=== PATIENT | female | born 1930 | race Caucasian/White ===

== ENCOUNTER 2017-05-30 13:27 | Inpatient (IN) | payer MEDICARE, OTHER ==
[2017-05-30] MEDS ORDERED: Sodium Chloride 0.9% 10 ML Syringe FLUSH PRN (14:07)
[2017-05-30] MEDS ORDERED: Nitroglycerin 0.4 MG Tab.SL SL PRN (14:09)
[2017-05-30] MEDS ORDERED: Take Home: Albuterol 6.7 GM Inhaler, 1 Inhaler Pack INH PRN (14:12)
[2017-05-30] MEDS ORDERED: Dextran 70/Hypromellose/PF Ophth Soln 0.9 ML UD EYEBOTH PRN (14:12)
[2017-05-30] MEDS ORDERED: cloNIDine 0.1 MG Tab PO PRN (14:12)
[2017-05-30] MEDS ORDERED: Acetaminophen 325 MG Tab PO PRN (14:12)
[2017-05-30] MEDS ORDERED: Albuterol 0.083% 2.5 MG/3 ML Neb Soln NEB PRN (14:35)
[2017-05-30] MEDS: Furosemide 20 MG/2 ML VIAL IV SCH (15:22)
[2017-05-30] MEDS: Enoxaparin 60 MG/0.6 ML Syringe SUBCUT SCH ×2 (15:22→20:07)
[2017-05-30] MEDS: Vitamin B Complex Tab.ER PO SCH (15:22)
[2017-05-30] MEDS: Mirtazapine 15 MG Tab PO SCH (20:08)
[2017-05-30] MEDS: Gabapentin 300 MG Cap PO SCH (20:08)
[2017-05-30] MEDS: Warfarin 2.5 MG Tab PO SCH (20:08)
[2017-05-30] MEDS: BRIMONIDINE EYEBOTH SCH (20:10)
[2017-05-30] MEDS: BIMATOPROST EYEBOTH SCH (20:10)
[2017-05-30] MEDS: TIMOLOL EYEBOTH SCH (20:10)
[2017-05-30] MEDS: SALMETEROL IH SCH (20:11)
[2017-05-30] MEDS: FLUTICASONE IH SCH (20:11)
[2017-05-30] MEDS: DORZOLAMIDE EYERT SCH (20:11)
--- NOTE | 2017-05-31 00:17 | HP ---
CHIEF COMPLAINT: Chest pain. HISTORY OF PRESENT ILLNESS: This is an 86-year-old female who came into her regularly scheduled clinic visit today with chest pain, she describes as a tightness, started 8:30 this morning, so about 3 hours prior to presentation. She rated it at an 8 or 9, but after receiving 4 baby aspirin, it decreased to about a 4 and was improving, so no nitroglycerin was given. She does have a known history of coronary artery disease back in 2003. She had a 70% lesion in the diagonal, but she has never had stents or any interventions. She has a longstanding history of essential hypertension, under poor control, atrial fibrillation on Coumadin, likely peripheral vascular disease, and renal artery stenosis with a history of splenic artery aneurysm and pulmonary hypertension. The patient admits she is short of breath also. Nothing seems to make the pain better or worse. She did not try any medications at home even though she has nitroglycerin. She is not coughing, no fever, no chills. Prior to this morning, she has not had chest discomfort, but has been having changes in her blood pressure medications and being seen almost on a weekly basis. In fact, she was taken off hydrochlorothiazide due to worsening kidney function, but last week, her kidneys had improved. Unfortunately, she has gained 5 pounds in 1 week, but denies that her legs have increased significantly in swelling. She is on Lasix 40 mg daily. She is on Toprol 25 mg daily and higher doses have caused bradycardia. She has been on Catapres pretty consistently 0.1 mg daily over the last month with higher blood pressures. She is also on 60 mg of lisinopril daily. ALLERGIES: Include penicillin, hives; latex, hives; cephalosporins, rash; Lotrel, unknown, that would be the combination of amlodipine, benazepril, actually amlodipine had recently been discontinued due to leg swelling; rofecoxib, tape, Vioxx, Zoloft causes nausea, vomiting, and diarrhea. MEDICATIONS: Her current medication list some of which are listed already above, but includes nitroglycerin 0.3 as needed for chest pain, Incruse daily, vitamin B complex daily, folic acid daily, Neurontin 300 in the morning, 600 at bedtime, Tylenol as needed, Toprol 25 mg daily, clonidine 0.1 daily for blood pressures over 150, lisinopril 60 mg daily, ophthalmic drops Lumigan, Advair 1 puff twice a day, Lasix 40 mg daily, Imdur 60 mg daily, Remeron 15 mg at bedtime, Combigan drops, Trusopt, Voltaren gel, multivitamin, eye vitamins, warfarin alternating doses of 3.75 and 2.5 mg, but previously had been on 2.5 mg daily. PAST MEDICAL HISTORY: 1. Tricuspid regurgitation, moderate mitral regurgitation. 2. Previous small bowel obstruction with adhesions, had surgery for that. 3. Coronary artery disease dating back to [address] elevation [place] and then angiogram in 2003 showed 70% narrowing in the diagonal branch, but without other significant stenosis. 4. History of stroke with homonymous hemianopia, occipital lobe infarction. 5. Chronic atrial fibrillation on Coumadin. 6. Pulmonary hypertension due to left heart disease. 7. Diastolic heart failure chronic with ejection fraction in 09/2014 at 65%. 8. Peripheral neuropathy. 9. Previous right hip fracture with ORIF in 2011. 10.Reactive airway disease but is not asthma. 11.Depression, long-standing, follows with Psychiatry. 12.Essential hypertension, poorly controlled. 13.Right renal artery stenosis. 14.Splenic artery aneurysm. 15.Reported history of dementia on a mini-mental status exam but that was after a cardiac arrest for bradycardia improved to 27/30 in 2017. SOCIAL HISTORY: The patient is living independently in an apartment. She has multiple children, but not all of them are involved in her care. She is a nonsmoker, nondrinker. FAMILY HISTORY: Both parents are . REVIEW OF SYSTEMS: General: Again, the weight change. She has felt fatigued. HEENT: No sore throat. Cardiac: She has had the chest discomfort, shortness of breath. She has not noted any palpitations. Respiratory: She is not coughing. Musculoskeletal: She has had some leg swelling over the past month, it has gotten a little worse since last week, but better than a month ago, otherwise musculoskeletal, no new aches or pains. Neurologic: No new weakness. No memory changes. Otherwise, all systems reviewed and found to be negative unless otherwise stated. PHYSICAL EXAMINATION: General: The patient was seen at [facility] on exam there. In general, she is in no acute distress. Vital Signs: Her temperature 97.3, weight 63.5 kg, pulse 79, blood pressure 185/71, respiratory rate 16, O2 93 on room air. Heart: Regular rate and rhythm with systolic murmur appreciated. Lung: Lung sounds are clear to auscultation bilaterally without crackles or wheezes. Abdomen: Nondistended, nontender. Extremities: Warm and dry. She has 1+ edema to both ankles and shins. No redness, no warmth, no drainage. She had a rash a few weeks ago, but it was from [facility]. She never ended up needing antibiotics. Neuro: Mental status, she is alert and orientated x3. Psych: She appears mildly depressed, but not suicidal. LAB WORK: Reviewed showed a troponin negative at 0.017. BNP 1450. INR was just 1.5. BMP, glucose 93, BUN 23, creatinine 1.12, sodium 139, potassium 4.1, chloride 105, bicarb 24, calcium 9.1. CBC, white count 6.2, hemoglobin 12.4, platelets are actually 181. B12 pending. On her EKG, she does have atrial flutter appreciated, 3:1 conduction rate is 78. She has LVH changes which likely contribute to some nonspecific inferior lateral ST changes when compared to her EKG from 12/2016. She was also in atrial flutter at that time, LVH and nonspecific ST changes are the same. Chest x-ray done through the clinic showed some mild increased pulmonary vascular congestion, but no acute infiltrates. ASSESSMENT AND PLAN: 1. Acute on chronic diastolic heart failure exacerbation with known EF of 65% back in 2014. We will place the patient on IV Lasix 20 mg b.i.d., reassess lab work in the morning. 2. Essential hypertension, elevated blood pressures probably contributing to the diastolic heart failure. This should improve with the Lasix. At this point, I will also stop her Toprol and place her on low-dose Coreg 3.125 b.i.d. to help the blood pressure more and hopefully not affect the heart rates as much. We will continue her other home medications. 3. Mild renal insufficiency, really this has improved. We will continue close monitoring of kidney function with IV Lasix. 4. Pulmonary hypertension. We will order oxygen to be used at night. 5. Coronary artery disease. We will rule her out with serial troponins. 6. Valvular heart disease. We will manage medically with optimal control of blood pressure. 7. Probable renal artery stenosis could be contributing to blood pressure, but given her kidney function and other comorbidities, we will treat medically. Eventually, she will be seen by Interventional Radiology for another angiogram. 8. History of stroke with atrial fibrillation. We are going to place her on Lovenox 60 twice daily, repeat an INR in the morning. Continue 3.75 daily for now. 9. History of reactive airway disease, not asthma. We will continue her home inhalers. This is stable. No exacerbation contributing to her breathing. I think this is all cardiac. 10.History of dementia. The patient has been managing okay. 11.Depression. Stress is contributing somewhat to her blood pressure. We will have the clinical social worker see her for supportive cares. PLAN: The patient is admitted for acute cares, for IV diuresis, telemetry, diuretics, repeat troponins, blood pressure control. Anticipate she will at least be here 2 midnights and discharge home when medically stable. Code level 1. MKA: 05/30/2017 17:42:43 MODL: 05/31/2017 00:11:06 /[id number]
[2017-05-31] MEDS: TIMOLOL EYEBOTH SCH ×2 (05:04→14:00)
[2017-05-31] MEDS: BRIMONIDINE EYEBOTH SCH ×2 (05:04→14:00)
[2017-05-31] MEDS: Carvedilol 3.125 MG Tab PO SCH ×3 (06:26→18:09)
[2017-05-31] MEDS ORDERED: Metoprolol Tartrate 25 MG Tab PO SCH (08:00)
[2017-05-31] MEDS: Vitamin B Complex Tab.ER PO SCH (08:28)
[2017-05-31] MEDS: Folic Acid 1 MG Tab PO SCH (08:29)
[2017-05-31] MEDS: Isosorbide Mononitrate 30 MG Tab.ER PO SCH (08:30)
[2017-05-31] MEDS: Gabapentin 300 MG Cap PO SCH ×2 (08:31→20:12)
[2017-05-31] MEDS: Enoxaparin 60 MG/0.6 ML Syringe SUBCUT SCH ×2 (08:31→20:12)
[2017-05-31] MEDS: Beta-Carotene (Vitamin A) w/Vitamin C & E plus Minerals Tab PO SCH (08:32)
[2017-05-31] MEDS: Lisinopril 20 MG Tab PO SCH (08:32)
[2017-05-31] MEDS: Furosemide 20 MG/2 ML VIAL IV SCH ×2 (08:43→16:28)
--- NOTE | 2017-05-31 09:52 | PN ---
Progress Note for CONNOR SPEARS Date: 05/31/2017 Room #: VM.203 SUBJECTIVE: This is hospital day #2 for an 86-year-old admitted with diastolic heart failure exacerbation and chest pain. She was ruled out for myocardial infarction with serial troponins, which were all negative. Her chest pain did resolve. It improved significantly after 4 aspirin in the clinic and she did not even take any nitro in the hospital. She states she is less short of breath when she has been up today going to the bathroom, but she has not really been out of her room walking. She has been urinating quite a bit with IV Lasix. Her leg swelling has improved. She was monitored with telemetry. She did have some bradycardia down to 31 including a couple 2.6 second blocks. She has been on Toprol 25 mg daily. This was switched to Coreg to start today 3.125 b.i.d. OBJECTIVE: Vital Signs: Her temperature is 98.4, her pulse is 72, blood pressure 161/74, respiratory rate 18, and O2 96% on room air. General: She is in no acute distress. Heart: Regular rate and rhythm with murmur noted. Lungs: Sounds are clear to auscultation, but decreased slightly in the bases. No crackles or wheezes appreciated. Abdomen: Soft, nontender. Extremities: Warm and dry, just trace edema at the ankles. Mental Status: She is alert and orientated x3. LABORATORY DATA: Lab work does show white count 5.5, hemoglobin 10.8, and platelets 169. INR low at 1.2. Sodium 145, potassium 3.8, chloride 109, bicarb 30, BUN 22, creatinine 1.1, calcium 8.5, and magnesium 1.9 yesterday. ASSESSMENT AND PLAN: 1. [id number] diastolic heart failure exacerbation with known EF of 65% back in 2014 and known valvular heart disease. We will continue the patient on IV Lasix 20 mg twice daily. Reassess labs in the morning. Creatinine has been actually improved today at 1.1. 2. Essential hypertension. Blood pressure is still elevated, but improved, should continue to improve with diuresis. She also will be on Coreg now. 3. Atrial flutter with bradycardia. The patient has had actually a bradycardic arrest in the past with increased doses of beta-blockers; so, we will do this cautiously and monitor her with telemetry. I had discussed the possibility of seeing Cardiology and the potential for pacemaker with the patient. She would like to avoid this. 4. Mild renal insufficiency with chronic kidney disease. This is improving. We will continue to monitor. 5. Renal artery stenosis. We will contact Interventional Radiology and let them know that her kidney function is improving. They are planning for her to have an angiogram in the future. 6. Pulmonary hypertension. She is on oxygen at night. 7. Coronary artery disease. She has no further chest pain. 8. History of stroke with atrial fibrillation. She is on Lovenox 60 mg twice daily. We will repeat her INR in the morning and continue the Coumadin 3.75 mg. She states she did not miss any doses. 9. History of reactive airway disease, that is not asthma. This is stable. 10.History of dementia. This is mild and she has been managing quite well. She lives independently. If she did need a pacemaker, she would be a candidate for it. 11.Depression, usually worsened by stress. I will have her visit with the social science teacher for supportive cares. PLAN: At this point, the patient will continue acute cares with IV Lasix, telemetry, repeat lab work tomorrow, continue Lovenox, CPT, code level 1. MKA: 05/31/2017 09:04:09 MODL: 05/31/2017 09:29:25 /[id number]
[2017-05-31] MEDS: SALMETEROL IH SCH ×2 (10:01→20:13)
[2017-05-31] MEDS: UMECLIDINIUM BROMIDE 62.5 MCG IH SCH (10:01)
[2017-05-31] MEDS: FLUTICASONE IH SCH ×2 (10:01→20:13)
[2017-05-31] MEDS: DORZOLAMIDE EYERT SCH ×3 (10:01→20:14)
[2017-05-31] MEDS: cloNIDine 0.1 MG Tab PO SCH (10:02)
[2017-05-31] MEDS: Warfarin 2.5 MG Tab PO SCH (20:12)
[2017-05-31] MEDS: Mirtazapine 15 MG Tab PO SCH (20:12)
[2017-05-31] MEDS: BIMATOPROST EYEBOTH SCH (20:13)
[2017-06-01] MEDS: TIMOLOL EYEBOTH SCH ×2 (02:15→16:35)
[2017-06-01] MEDS: BRIMONIDINE EYEBOTH SCH ×2 (02:15→16:35)
[2017-06-01] MEDS: Carvedilol 3.125 MG Tab PO SCH ×2 (09:33→17:17)
[2017-06-01] MEDS: Vitamin B Complex Tab.ER PO SCH (09:33)
[2017-06-01] MEDS: cloNIDine 0.1 MG Tab PO SCH (09:33)
[2017-06-01] MEDS: FLUTICASONE IH SCH ×2 (09:34→19:43)
[2017-06-01] MEDS: Folic Acid 1 MG Tab PO SCH (09:34)
[2017-06-01] MEDS: DORZOLAMIDE EYERT SCH ×3 (09:34→19:43)
[2017-06-01] MEDS: SALMETEROL IH SCH ×2 (09:34→19:43)
[2017-06-01] MEDS: Isosorbide Mononitrate 30 MG Tab.ER PO SCH (09:34)
[2017-06-01] MEDS: Gabapentin 300 MG Cap PO SCH ×2 (09:35→19:40)
[2017-06-01] MEDS: Furosemide 20 MG/2 ML VIAL IV SCH ×2 (09:35→16:54)
[2017-06-01] MEDS: Lisinopril 20 MG Tab PO SCH (09:35)
[2017-06-01] MEDS: Enoxaparin 60 MG/0.6 ML Syringe SUBCUT SCH ×2 (09:35→19:41)
[2017-06-01] MEDS: Beta-Carotene (Vitamin A) w/Vitamin C & E plus Minerals Tab PO SCH (09:37)
[2017-06-01] MEDS: UMECLIDINIUM BROMIDE 62.5 MCG IH SCH (09:37)
--- NOTE | 2017-06-01 16:50 | PN ---
Progress Note for CONNOR SPEARS Date: 06/01/2017 Room #: VM.203 SUBJECTIVE: This is hospital day #3 for an 86-year-old admitted with an acute on chronic diastolic heart failure exacerbation, chest pain and hypertension. The patient has diuresed well over 1.4 L. she has had good urine output. She has had no further chest pain. Her breathing is better. She has been up walking with therapies. Her leg swelling has improved. Her blood pressures have also improved. Unfortunately, her INR continues to be low only up to 1.3 today. Her family states she missed at least 3/5 doses of Coumadin. Her medications are set up for her by Home Health, but she said there had been a problem with her timer. It was also confirmed with pharmacy that she did not want to even berry picker a medication that was about 3 dollars a month and Eliquis would be 8 dollars. She does have some history of medication noncompliance in the past but had been doing better recently. Family is hopeful that we can simplify her regimen of medications. She denies any headache or vision changes. OBJECTIVE: Vital Signs: Her temperature is 97.7, her weight is 61.0 kg, blood pressure 129/68, respiratory rate 16, O2 95% on room air. General: She is in no acute distress. Heart : Regular rate and rhythm with murmur. Respiratory: Lungs sounds are clear to auscultation bilaterally without crackles or wheezes. Abdomen: Nondistended, nontender. Extremities: Just trace edema at the ankle. Overall in weight, she has lost about 5 pounds. Mental Status: She is alert and orientated x3. LABORATORY DATA: Lab work today does show white count 5.5, hemoglobin of 11, platelets 172. INR 1.3. Sodium 144, potassium 3.7, chloride 108, bicarb 29, BUN 26, creatinine 1.2, glucose 90, calcium 8.6. ASSESSMENT AND PLAN: 1. Acute on chronic diastolic heart failure exacerbation, improving with IV Lasix. EF is 65% back in 2015 but she has valvular heart disease. We will continue the IV Lasix. We will reassess labs in the morning. Likely, she will be able to be discharged home on increased doses of oral Lasix tomorrow, which would include 40 mg in the morning and 20 mg in the afternoon. Could consider adding aldactone if blood pressure continues to be elevated or she needs additional potassium supplements. 2. Essential hypertension, under improved control. We will continue her current medications. 3. Atrial flutter with bradycardia. This has improved since stopping the metoprolol. Coreg seems to be maintaining her blood pressure better as well. We will continue telemetry given her history of bradycardia and pauses. 4. Chronic kidney disease, stable. We will repeat renal function tomorrow. 5. Renal artery stenosis. We are still working on followup with Interventional Radiology. 6. Pulmonary hypertension. We will continue oxygen at night. 7. Coronary artery disease. She has had no further chest pain. 8. History of stroke with atrial fibrillation. She will continue with Lovenox bridging. We will repeat an INR tomorrow. 9. Reactive airway disease that is not asthma, stable. 10.History of dementia. B12 level through the clinic recently was normal. She will continue on her supplements. 11.Depression, chronic problem, worsened by stress, seems to be stable. PLAN: At this point, the patient will continue acute cares with IV Lasix. We will continue telemetry. We will continue Lovenox. We will repeat lab work tomorrow. MKA: 06/01/2017 16:09:07 MODL: 06/01/2017 16:22:53 /[id number]
[2017-06-01] MEDS ORDERED: Furosemide 20 MG Tab PO SCH (17:00)
[2017-06-01] MEDS: Mirtazapine 15 MG Tab PO SCH (19:40)
[2017-06-01] MEDS: Warfarin 2.5 MG Tab PO SCH (19:41)
[2017-06-01] MEDS: BIMATOPROST EYEBOTH SCH (19:41)
[2017-06-02] MEDS: TIMOLOL EYEBOTH SCH (03:21)
[2017-06-02] MEDS: BRIMONIDINE EYEBOTH SCH (03:21)
[2017-06-02] MEDS ORDERED: Furosemide 40 MG Tab PO SCH (08:00)
[2017-06-02] MEDS: Vitamin B Complex Tab.ER PO SCH (08:11)
[2017-06-02] MEDS: SALMETEROL IH SCH (08:13)
[2017-06-02] MEDS: FLUTICASONE IH SCH (08:13)
[2017-06-02] MEDS: Folic Acid 1 MG Tab PO SCH (08:13)
[2017-06-02] MEDS: Enoxaparin 60 MG/0.6 ML Syringe SUBCUT SCH (08:15)
[2017-06-02] MEDS: Gabapentin 300 MG Cap PO SCH (08:15)
[2017-06-02] MEDS: Beta-Carotene (Vitamin A) w/Vitamin C & E plus Minerals Tab PO SCH (08:18)
[2017-06-02] MEDS: cloNIDine 0.1 MG Tab PO SCH (08:23)
[2017-06-02] MEDS: Isosorbide Mononitrate 30 MG Tab.ER PO SCH (08:24)
[2017-06-02] MEDS: Lisinopril 20 MG Tab PO SCH (08:25)
[2017-06-02] MEDS: Carvedilol 3.125 MG Tab PO SCH (08:28)
[2017-06-02] MEDS: DORZOLAMIDE EYERT SCH (08:29)
[2017-06-02] MEDS: UMECLIDINIUM BROMIDE 62.5 MCG IH SCH (08:29)
[2017-06-02 09:48] VITALS: BP 174/52
--- NOTE | 2017-06-02 10:19 | DISCH ---
PRIMARY DISCHARGE DIAGNOSES: 1. Acute on chronic diastolic heart failure exacerbation with hypertensive urgency and chest pain, EF known to be 65% in 2015 with valvular heart disease. 2. Angina with known history of coronary artery disease, ruled out for myocardial infarction with serial troponins. 3. Essential hypertension. Blood pressure has improved significantly, but did go up again slightly just prior to discharge. The patient admits to being anxious about going home, but she is ready for discharge and wants to go home today. 4. Atrial flutter with bradycardia and up to 2.6 second pauses while on metoprolol. Seemed to do better on lower dose Coreg. Most heart rates were in the 80s with atrial flutter with some readings down into the high 40s. 5. Chronic kidney disease, stable with creatinine 1.2 on discharge. 6. Renal artery stenosis. Interventional Radiology is trying to contact her to schedule an angiogram. 7. Pulmonary hypertension, chronic and at least [id number]. She is supposed to use oxygen at night. 8. Coronary artery disease in the diagonal branch, 70% for at least the last 10 years. 9. History of stroke on Coumadin, with subtherapeutic INR due to missing at least 3 doses of Coumadin. INR improved to 1.6 on her discharge. She was bridged with Lovenox during her stay. 10.Reactive airway disease that is not asthma. 11.History of dementia. 12.Depression. REASON FOR ADMISSION: On the date of admission, this 86-year-old female was admitted after presenting to the clinic with chest pain over a 5-pound weight gain in the past week, leg swelling, and shortness of breath. The patient was admitted. She was placed on IV Lasix and diuresed. Her weight went down about 5 pounds after that and she was negative over 1 L of fluid. She had no further chest pain. Her breathing was better. Overall, she was feeling better and stable for discharge. The patient had been having increased fluid retention over about the last month, had been having multiple diuretic adjustments, and at one point was on hydrochlorothiazide and her creatinine had increased. Therefore, it was felt that inpatient diuresis would be most appropriate for her. She also has chronic anemia and hemoglobin was stable between 10.8 and 10.6 on discharge. She had no acute bleeding with her increased anticoagulation. She was up, she was walking in the manrique, working with therapy. PHYSICAL EXAMINATION: Vital Signs: Discharge vitals include a weight 62.6 kg; temperature 97.6; pulse 72; blood pressure 150/49, but then a repeat just after I rounded was 191/77. It will be repeated again before discharge. Respiratory rate 14, O2 99 on 2 L, but she will be off that during the day. Heart: Regular rate and rhythm with murmur. Lungs: Lung sounds are clear to auscultation bilaterally without crackles or wheezes. Abdomen: Positive bowel sounds. Soft and nontender. Extremities: Warm and dry. She has just trace edema at her ankles. Mental Status: She is alert, she is orientated x3. Psych: She is not overly depressed or anxious. The social sciences department chair is going to try to visit with her prior to discharge to answer any concerns and we will get Home Health set up again on discharge. DISCHARGE PLANS AND INSTRUCTIONS: She will see Dr. Piedra in the clinic on 06/13/2017 at 3:40 with lab work prior. CBC, BMP, and mag. She will be on increased Lasix 40 in the morning and 20 at 11:00 a.m. to go with her other 11:00 med, which is Imdur. She also was given 3.75 of warfarin each day she was here, but will go back on 2.5 daily until her repeat INR on Monday. Her metoprolol was also stopped and she will be on Coreg 3.125 twice daily. For her addendum to Home Health, the patient was seen [id number] on 06/02/2017. She requires Home Health with nursing for teaching and assessments given her heart failure and cognitive impairment due to multiple medication changes. The patient will be homebound as she is unable to drive due to her poor vision and shortness of breath with traveling longer distances. She relies on others to get brought to appointments. Greater than 30 minutes spent on this discharge process. MKA: 06/02/2017 08:49:06 MODL: 06/02/2017 09:55:50 /[id number]
[2017-06-02] MEDS ORDERED: Warfarin 2.5 MG Tab PO SCH (20:00)
== END 2017-06-02 09:55 | disposition home or self-care (01) | DRG 291 ==
LOC: VM.MS 13:30 → UNDOADMIN 13:30 → VM.MS 13:33
PROVIDERS: ADMIT Internal Medicine; ATTEND Internal Medicine
DX: I13.0 Hypertensive heart and chronic kidney disease with heart failure and stage 1 through stage 4 chronic kidney disease, or unspecified chronic kidney disease (principal); I50.33 Acute on chronic diastolic (congestive) heart failure; I48.92 Unspecified atrial flutter; I25.119 Atherosclerotic heart disease of native coronary artery with unspecified angina pectoris; I27.22 Pulmonary hypertension due to left heart disease; I08.1 Rheumatic disorders of both mitral and tricuspid valves; I70.1 Atherosclerosis of renal artery; I48.2 Chronic atrial fibrillation; I72.8 Aneurysm of other specified arteries; Z86.73 Personal history of transient ischemic attack (TIA), and cerebral infarction without residual deficits; F03.90 Unspecified dementia, unspecified severity, without behavioral disturbance, psychotic disturbance, mood disturbance, and anxiety; F32.9 Major depressive disorder, single episode, unspecified; R00.1 Bradycardia, unspecified; N18.9 Chronic kidney disease, unspecified; J45.909 Unspecified asthma, uncomplicated; G62.9 Polyneuropathy, unspecified; Z88.0 Allergy status to penicillin; Z88.8 Allergy status to other drugs, medicaments and biological substances; Z88.1 Allergy status to other antibiotic agents; Z91.040 Latex allergy status; Z79.01 Long term (current) use of anticoagulants; Z79.899 Other long term (current) drug therapy
CPT/HCPCS: 36415; 80048; 83735; 84484; 85025; 85610; 94760; 97161-GP; A9270-GY; J1650; J1940; J7050

== ENCOUNTER 2017-09-05 13:30 | Emergency (ER) | payer MEDICARE, OTHER ==
[2017-09-05 13:46] VITALS: BP 142/61
[2017-09-05] MEDS ORDERED: Sodium Chloride 0.9% 10 ML Syringe FLUSH PRN (14:01)
[2017-09-05] MEDS ORDERED: Ondansetron 4 MG/2 ML SDV IVPUSH ONE (14:05)
[2017-09-05] MEDS ORDERED: Lactated Ringers 1,000 ML IV SCH (14:15)
[2017-09-05 15:07] LABS: CHLORIDE,CL 108 mmol/L (98-107); SODIUM,NA 143 mmol/L (136-145)
[2017-09-05] MEDS ORDERED: Nitrofurantoin Monohydrate/Macrocrystalline 100 MG Cap PO ONE (15:55)
--- NOTE | 2017-09-05 16:24 | EDM.PDOC ---
ED HPI GENERAL MEDICAL PROBLEM - General Chief Complaint: General Stated Complaint: DIZZY/LIGHTHEADED/DIARRHEA Time Seen by Provider: 09/05/17 13:43 Source of Information: Reports: Patient History Limitations: Reports: No Limitations - History of Present Illness INITIAL COMMENTS - FREE TEXT/NARRATIVE: Pt. presents to ER with complaints of weakness, lightheadedness, and fatigue. Family states that she does not like to drink water and typically drinks pop. She has also has a couple episodes of loose stools. No fever or chills. No weakness. Denies any chest pain or shortness of breath. Pt. states that her appetite has been poor. Onset: Today Location: Reports: Generalized Severity: Mild - Related Data Allergies Allergy/AdvReac Type Severity Reaction Status Date / Time adhesive Allergy Cannot Verified 01/21/17 14:14 Remember benazepril HCl [From Lotrel] Allergy Cannot Verified 01/21/17 14:14 Remember Cephalosporins Allergy Rash Verified 01/21/17 14:14 latex Allergy Hives Verified 01/21/17 14:14 Penicillins Allergy Hives Verified 01/21/17 14:14 rofecoxib [From Vioxx] Allergy Cannot Verified 01/21/17 14:14 Remember sertraline HCl [From Zoloft] AdvReac Diarrhea Verified 01/21/17 14:14 Home Meds: Home Meds Diclofenac Sodium [Voltaren 1% Gel] 2 gm TOP QID PRN 03/08/13 [History] Furosemide [Lasix] 40 mg PO DAILY 03/08/13 [History] Gabapentin [Neurontin] 300 mg PO DAILY 03/08/13 [History] Isosorbide Mononitrate [Imdur] 60 mg PO DAILY 03/08/13 [History] Lisinopril [Prinivil] 60 mg PO DAILY 03/08/13 [History] Nitroglycerin [Nitrostat] 0.3 mg SL ASDIRECTED PRN 03/08/13 [History] Albuterol Sulfate [Albuterol Sulfate HFA] 1 - 2 puff INH Q4HR PRN 12/23/13 [ History] Brimonidine/Timolol [Combigan 0.2%/0.5% Ophth Soln] 1 drop EYEBOTH Q12H [History] Vit C/Vit E Ac/Lut/Mineral 1 [Prosight with Lutein] 1 tab PO DAILY 01/05/15 [ History] Acetaminophen [Tylenol] 650 mg PO Q4HR PRN 01/08/15 [History] Mirtazapine [Remeron] 15 mg PO BEDTIME tablet 04/03/16 [Rx] Vitamin B Complex [Balanced B-50] 1 each PO DAILY tab.er 04/03/16 [Rx] Bimatoprost [LUMIGAN 0.01% Ophth Soln] 1 drop EYEBOTH BEDTIME 01/21/17 [History] Cyanocobalamin/FA/Pyridoxine [B Complex-Folic Acid] 1 each PO DAILY 01/21/17 [ History] Dextran 70/Hypromellose/PF [Tears Naturale Free] 1 - 2 each EYEBOTH TID PRN 01/27 [History] Dorzolamide [Trusopt 2% Ophth Soln] 1 drop EYERT TID 01/21/17 [History] Fluticasone/Salmeterol [Advair 250-50 Diskus] 1 puff IH BID 01/21/17 [History] Folic Acid 1 mg PO DAILY 01/21/17 [History] Gabapentin [Neurontin] 600 mg PO BEDTIME 01/21/17 [History] Umeclidinium Fonda [Incruse Ellipta*] 62.5 mcg IH DAILY 01/21/17 [History] Warfarin [Coumadin] 2.5 mg PO SUTUWETHFRSA@20 01/21/17 [History] cloNIDine [Catapres] 0.1 mg PO DAILY PRN 01/21/17 [History] Hydrocortisone [Hydrocortisone 2.5% Crm] 1 gm TOP TID 05/30/17 [History] Carvedilol [Coreg] 3.125 mg PO BIDM #60 tablet 06/02/17 [Rx] Furosemide [Lasix] 20 mg PO DAILY #90 tablet 06/02/17 [Rx] Furosemide [Lasix] 40 mg PO DAILY #1 tablet 06/02/17 [Rx] Past Medical History - Past Health History Medical/Surgical History: Denies Medical/Surgical History HEENT History: Reports: Cataract, Glaucoma Other HEENT History: wears glasses Respiratory History: Reports: COPD Genitourinary History: Reports: Urinary Incontinence Musculoskeletal History: Reports: Arthritis Neurological History: Reports: Alzheimers Disease, Other (See Below) Psychiatric History: Reports: Alzheimers Disease, Anxiety, Depression Other Oncologic History: skin cancer by eye 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 Denies: Fever, Chills, Night Sweats, Diaphoresis HEENT: Reports: No Symptoms Respiratory: Reports: No Symptoms Cardiovascular: Reports: No Symptoms Endocrine: Reports: No Symptoms GI/Abdominal: Reports: Abdominal Pain, Anorexia, Diarrhea : Denies: Dysuria, Flank Pain, Frequency Musculoskeletal: Reports: No Symptoms Skin: Reports: No Symptoms Neurological: Reports: Weakness Psychiatric: Reports: No Symptoms Hematologic/Lymphatic: Reports: No Symptoms Immunologic: Reports: No Symptoms ED EXAM, GENERAL - Physical Exam Exam: See Below Exam Limited By: No Limitations General Appearance: Alert, WD/WN, Lethargic, Mild Distress Eye Exam: Bilateral Eye: EOMI, Normal Fundi, Normal Inspection, PERRL Ears: Normal External Exam, Normal Canal, Hearing Grossly Normal, Normal TMs Ear Exam: Bilateral Ear: Auricle Normal, Canal Normal, TM normal Nose: Normal Inspection, Normal Mucosa, No Blood Throat/Mouth: Normal Inspection, Normal Lips, Normal Teeth, Normal Gums, Normal Oropharynx, Normal Voice, No Airway Compromise, Other (oral mucosa is dry) Head: Atraumatic, Normocephalic Neck: Normal Inspection, Supple, Non-Tender, Full Range of Motion Respiratory/Chest: No Respiratory Distress, Lungs Clear, Normal Breath Sounds, No Accessory Muscle Use, Chest Non-Tender Cardiovascular: Normal Peripheral Pulses, Regular Rate, Rhythm, No Edema, No Gallop, No JVD, No Murmur, No Rub Peripheral Pulses: 4+: Radial (L), Radial (R) GI/Abdominal: Soft, Non-Tender, No Organomegaly, Pelvis Stable, Other ( hyperactive bowel sounds) (Female) Exam: Deferred Rectal (Female) Exam: Deferred Back Exam: Normal Inspection, Full Range of Motion, NT Extremities: Normal Inspection, Normal Range of Motion, Non-Tender, Normal Capillary Refill, No Pedal Edema Neurological: Alert, Oriented, CN II-XII Intact, Normal Cognition, Normal Gait, Normal Reflexes, No Motor/Sensory Deficits Psychiatric: Normal Affect, Normal Mood Skin Exam: Warm, Dry, Intact, Cool, Pallor EKG INTERPRETATION EKG Date: 09/05/17 Time: 13:43 Rhythm: NSR [place]: Normal P-Wave: Present QRS: Normal ST-T: Normal QT: Normal Comparison: NA - No Prior EKG Course - Vital Signs Last Recorded V/S: Last Vital Signs Temp 35.9 C 09/05/17 13:43 Pulse 49 L 09/05/17 13:43 Resp 20 09/05/17 13:43 BP 142/61 H 09/05/17 13:43 Pulse Ox 97 09/05/17 13:43 - Orders/Labs/Meds Orders: Active Orders 24 hr Category Date Time Status EKG Documentation Completion [RC] STAT Care 09/05/17 14:01 Active Chest 2V [CR] Stat Exams 09/05/17 14:03 Taken UA W/MICROSCOPIC [URIN] Stat Lab 09/05/17 15:28 Ordered Lactated Ringers [Ringers, Lactated] 1,000 ml Med 09/05/17 14:15 Active IV ASDIRECTED Sodium Chloride 0.9% [Saline Flush] Med 09/05/17 14:01 Active 10 ml FLUSH ASDIRECTED PRN Peripheral IV Insertion Adult [OM.PC] Routine Oth 09/05/17 14:02 Ordered Medication Orders Lactated Ringer's (Ringers, Lactated) 1,000 mls @ 500 mls/hr IV ASDIRECTED MADDIE Last Admin: 09/05/17 14:28 Dose: 500 mls/hr Sodium Chloride (Saline Flush) 10 ml FLUSH ASDIRECTED PRN PRN Reason: Keep Vein Open Last Admin: 09/05/17 14:28 Dose: 10 ml Labs: Laboratory Tests 09/05/17 09/05/17 09/05/17 Range/Units 14:27 14:27 14:27 WBC 6.5 (4.0-10.0) x10^3/uL RBC 4.12 (4.00-5.50) x10^6/uL Hgb 12.8 D (12.0-16.0) g/dL Hct 39.0 (33.0-47.0) % MCV 94.7 H (78.0-93.0) fL MCH 31.1 (26.0-32.0) pg MCHC 32.8 (32.0-36.0) g/dL RDW Coeff of Neha 14.4 (10.0-15.0) % Plt Count 220 (130-400) x10^3/uL Neut % (Auto) 66.2 (50.0-80.0) % Lymph % (Auto) 18.6 L (25.0-50.0) % [place] % (Auto) 11.8 H (2.0-11.0) % Eos % (Auto) 3.1 (0.0-4.0) % Baso % (Auto) 0.3 (0.2-1.2) % PT 22.9 H (9.6-11.4) SEC INR 2.2 (2.0-3.5) Sodium 143 (136-145) mmol/L Potassium 3.9 (3.5-5.1) mmol/L Chloride 108 H (98-107) mmol/L Carbon Dioxide 26 (21-32) mmol/L Anion Gap 12.9 (10-20) mmol/L BUN 21 H (7-18) mg/dL Creatinine 1.3 H (0.55-1.02) mg/dL Est Cr Clr Drug Dosing 21.07 mL/min Estimated GFR (MDRD) 39 Glucose 115 H (74-106) mg/dL Lactic Acid (0.4-2.0) mmol/L Calcium 8.8 (8.5-10.1) mg/dL Corrected Calcium 9.36 (8.5-10.1) mg/dL Phosphorus 4.3 (2.6-4.7) mg/dL Magnesium 1.9 (1.8-2.4) mg/dL Total Bilirubin 1.0 (0.2-1.0) mg/dL AST 29 (15-37) U/L ALT 26 (14-59) U/L Alkaline Phosphatase 83 (46-116) U/L Troponin I < 0.017 (<=0.056) ng/mL C-Reactive Protein 3.6 H (<=0.9) mg/dL Total Protein 7.4 (6.4-8.2) g/dL Albumin 3.3 L (3.4-5.0) g/dL Globulin 4.1 Albumin/Globulin Ratio 0.80 TSH, Ultra Sensitive 4.436 H (0.358-3.74) uIU/mL Urine Color (YELLOW) Urine Appearance (CLEAR) Urine pH (5.0-8.0) Ur Specific [place] Urine Protein (NEGATIVE) mg/dL Urine Glucose (UA) (NEGATIVE) mg/dL Urine Ketones (NEGATIVE) mg/dL Urine Occult Blood (NEGATIVE) Urine Nitrite (NEGATIVE) Urine Bilirubin (NEGATIVE) Urine Urobilinogen (0.2) EU/dL Ur Leukocyte Esterase (NEGATIVE) Urine RBC (NOT SEEN) /HPF Urine WBC (NOT SEEN) /HPF Urine WBC Clumps Ur Squamous Epith Cells (NEGATIVE) /HPF Ur Renal Epithelial Cell (NEGATIVE) /HPF Amorphous Sediment Urine Bacteria (NEGATIVE) /HPF Hyaline Casts (NEGATIVE) /HPF Granular Casts (NEGATIVE) /HPF Urine Mucus (NEGATIVE) /LPF 09/05/17 09/05/17 Range/Units 14:27 15:28 WBC (4.0-10.0) x10^3/uL RBC (4.00-5.50) x10^6/uL Hgb (12.0-16.0) g/dL Hct (33.0-47.0) % MCV (78.0-93.0) fL MCH (26.0-32.0) pg MCHC (32.0-36.0) g/dL RDW Coeff of Neha (10.0-15.0) % Plt Count (130-400) x10^3/uL Neut % (Auto) (50.0-80.0) % Lymph % (Auto) (25.0-50.0) % [place] % (Auto) (2.0-11.0) % Eos % (Auto) (0.0-4.0) % Baso % (Auto) (0.2-1.2) % PT (9.6-11.4) SEC INR (2.0-3.5) Sodium (136-145) mmol/L Potassium (3.5-5.1) mmol/L Chloride (98-107) mmol/L Carbon Dioxide (21-32) mmol/L Anion Gap (10-20) mmol/L BUN (7-18) mg/dL Creatinine (0.55-1.02) mg/dL Est Cr Clr Drug Dosing mL/min Estimated GFR (MDRD) Glucose (74-106) mg/dL Lactic Acid 0.8 (0.4-2.0) mmol/L Calcium (8.5-10.1) mg/dL Corrected Calcium (8.5-10.1) mg/dL Phosphorus (2.6-4.7) mg/dL Magnesium (1.8-2.4) mg/dL Total Bilirubin (0.2-1.0) mg/dL AST (15-37) U/L ALT (14-59) U/L Alkaline Phosphatase (46-116) U/L Troponin I (<=0.056) ng/mL C-Reactive Protein (<=0.9) mg/dL Total Protein (6.4-8.2) g/dL Albumin (3.4-5.0) g/dL Globulin Albumin/Globulin Ratio TSH, Ultra Sensitive (0.358-3.74) uIU/mL Urine Color Dark yellow H (YELLOW) Urine Appearance Turbid H (CLEAR) Urine pH 5.5 (5.0-8.0) Ur Specific [place] >=1.030 Urine Protein >=300 H (NEGATIVE) mg/dL Urine Glucose (UA) Negative (NEGATIVE) mg/dL Urine Ketones Negative (NEGATIVE) mg/dL Urine Occult Blood Moderate H (NEGATIVE) Urine Nitrite Negative (NEGATIVE) Urine Bilirubin Moderate H (NEGATIVE) Urine Urobilinogen 1.0 (0.2) EU/dL Ur Leukocyte Esterase Trace H (NEGATIVE) Urine RBC 5-10 H (NOT SEEN) /HPF Urine WBC 30-40 H (NOT SEEN) /HPF Urine WBC Clumps Few Ur Squamous Epith Cells Few H (NEGATIVE) /HPF Ur Renal Epithelial Cell Few H (NEGATIVE) /HPF Amorphous Sediment Few Urine Bacteria Moderate H (NEGATIVE) /HPF Hyaline Casts Few H (NEGATIVE) /HPF Granular Casts Few H (NEGATIVE) /HPF Urine Mucus Many H (NEGATIVE) /LPF Meds: Medications Generic Name Dose Route Start Last Admin Trade Name Freq PRN Reason Stop Dose Admin Lactated Ringer's 1,000 mls @ 500 mls/hr 09/05/17 14:15 09/05/17 14:28 Ringers, Lactated IV 500 mls/hr ASDIRECTED MADDIE Administration Sodium Chloride 10 ml 09/05/17 14:01 09/05/17 14:28 Saline Flush FLUSH 10 ml ASDIRECTED PRN Administration Keep Vein Open Discontinued Medications Generic Name Dose Route Start Last Admin Trade Name Lukas PRN Reason Stop Dose Admin Nitrofurantoin Macrocrystals 100 mg 09/05/17 15:55 09/05/17 16:07 Macrobid PO 09/05/17 15:56 100 mg ONETIME ONE Administration Ondansetron HCl 4 mg 09/05/17 14:05 09/05/17 14:28 Zofran IVPUSH 09/05/17 14:06 4 mg ONETIME ONE Administration Departure - Departure Time of Disposition: 16:15 Disposition: Home, Self-Care 01 Condition: Good Clinical Impression: Dehydration, UTI (urinary tract infection) - Discharge Information Instructions: Nitrofurantoin tablets or capsules, Dehydration, Adult, Easy-to- Read Referrals: Lisa Piedra DO [Primary Care Provider] - Forms: ED Department Discharge Additional Instructions: Macrobid twice daily for 5 days Increase your intake of water. Minimize consumption of water. Follow-up in clinic in 10-14 days. Return to ER if worsening discomfort, fever, chills, weakness, or lightheadedness. - My Orders Last 24 Hours: My Active Orders 09/05/17 14:01 EKG Documentation Completion [RC] STAT Sodium Chloride 0.9% [Saline Flush] 10 ml FLUSH ASDIRECTED PRN 09/05/17 14:02 Peripheral IV Insertion Adult [OM.PC] Routine 09/05/17 14:03 Chest 2V [CR] Stat 09/05/17 14:15 Lactated Ringers [Ringers, Lactated] 1,000 ml IV ASDIRECTED 09/05/17 15:28 UA W/MICROSCOPIC [URIN] Stat - Assessment/Plan Last 24 Hours: My Active Orders 09/05/17 14:01 EKG Documentation Completion [RC] STAT Sodium Chloride 0.9% [Saline Flush] 10 ml FLUSH ASDIRECTED PRN 09/05/17 14:02 Peripheral IV Insertion Adult [OM.PC] Routine 09/05/17 14:03 Chest 2V [CR] Stat 09/05/17 14:15 Lactated Ringers [Ringers, Lactated] 1,000 ml IV ASDIRECTED 09/05/17 15:28 UA W/MICROSCOPIC [URIN] Stat Plan: Macrobid twice daily for 5 days Increase your intake of water. Minimize consumption of water. Follow-up in clinic in 10-14 days. Return to ER if worsening discomfort, fever, chills, weakness, or lightheadedness.
== END 2017-09-05 16:10 | disposition home or self-care (01) ==
LOC: VM.ED 13:30
DX: E86.0 Dehydration (principal); N39.0 Urinary tract infection, site not specified; J44.9 Chronic obstructive pulmonary disease, unspecified; G30.9 Alzheimer's disease, unspecified; F02.80 Dementia in other diseases classified elsewhere, unspecified severity, without behavioral disturbance, psychotic disturbance, mood disturbance, and anxiety; Z88.0 Allergy status to penicillin; Z91.040 Latex allergy status; Z88.8 Allergy status to other drugs, medicaments and biological substances; Z79.899 Other long term (current) drug therapy
CPT/HCPCS: 36415; 71046; 80053; 81001; 83605; 83735; 84100; 84443; 84484; 85025; 85610; 86140; 93005; 96361; 96374; 99284-GF; 99285; A9270-GY; J2405; J7050; J7120

== ENCOUNTER 2017-10-03 01:22 | Emergency (ER) | payer MEDICARE, OTHER ==
[2017-10-03] MEDS ORDERED: Sodium Chloride 0.9% 10 ML Syringe FLUSH PRN (01:30)
[2017-10-03] MEDS ORDERED: Lactated Ringers 1,000 ML IV ONE (01:31)
[2017-10-03] MEDS ORDERED: methylPREDNISolone Sodium Succinate 125 MG/2 ML SDV IVPUSH ONE (01:37)
[2017-10-03] MEDS ORDERED: Albuterol/Ipratropium 3.0-0.5 MG/3 ML Neb Soln NEB ONE (01:38)
--- NOTE | 2017-10-03 01:43 | EDM.PDOC ---
ED HPI GENERAL MEDICAL PROBLEM - General Chief Complaint: Respiratory Problem Stated Complaint: shortness of breath Time Seen by Provider: 10/03/17 01:29 Source of Information: Reports: Patient, EMS Notes Reviewed, RN, RN Notes Reviewed History Limitations: Reports: No Limitations - History of Present Illness INITIAL COMMENTS - FREE TEXT/NARRATIVE: Patient presents to the ED at [facility] via EMS for SOB and wheezing. Patient states her symptoms began 6pm last evening. She tried using her inhaler medication at home, but did not have any relief. Therefore, she called 911. Patient states she has chest pressure from her work of breathing and wheezing. Onset Date: 10/02/17 Onset Time: 18:00 Chest Heaviness Pain Score (Numeric/FACES): 8 - Related Data Allergies Allergy/AdvReac Type Severity Reaction Status Date / Time adhesive Allergy Cannot Verified 10/03/17 02:04 Remember benazepril HCl [From Lotrel] Allergy Cannot Verified 10/03/17 02:04 Remember Cephalosporins Allergy Rash Verified 10/03/17 02:04 latex Allergy Hives Verified 10/03/17 02:04 Penicillins Allergy Hives Verified 10/03/17 02:04 rofecoxib [From Vioxx] Allergy Cannot Verified 10/03/17 02:04 Remember sertraline HCl [From Zoloft] AdvReac Diarrhea Verified 10/03/17 02:04 Home Meds: Home Meds Diclofenac Sodium [Voltaren 1% Gel] 2 gm TOP QID PRN 03/08/13 [History] Furosemide [Lasix] 40 mg PO DAILY 03/08/13 [History] Gabapentin [Neurontin] 300 mg PO DAILY 03/08/13 [History] Isosorbide Mononitrate [Imdur] 60 mg PO DAILY 03/08/13 [History] Lisinopril [Prinivil] 60 mg PO DAILY 03/08/13 [History] Nitroglycerin [Nitrostat] 0.3 mg SL ASDIRECTED PRN 03/08/13 [History] Albuterol Sulfate [Albuterol Sulfate HFA] 1 - 2 puff INH Q4HR PRN 12/23/13 [ History] Brimonidine/Timolol [Combigan 0.2%/0.5% Ophth Soln] 1 drop EYEBOTH Q12H [History] Vit C/Vit E Ac/Lut/Mineral 1 [Prosight with Lutein] 1 tab PO DAILY 01/05/15 [ History] Acetaminophen [Tylenol] 650 mg PO Q4HR PRN 01/08/15 [History] Mirtazapine [Remeron] 15 mg PO BEDTIME tablet 04/03/16 [Rx] Vitamin B Complex [Balanced B-50] 1 each PO DAILY tab.er 04/03/16 [Rx] Bimatoprost [LUMIGAN 0.01% Ophth Soln] 1 drop EYEBOTH BEDTIME 01/21/17 [History] Cyanocobalamin/FA/Pyridoxine [B Complex-Folic Acid] 1 each PO DAILY 01/21/17 [ History] Dextran 70/Hypromellose/PF [Tears Naturale Free] 1 - 2 each EYEBOTH TID PRN 01/27 [History] Dorzolamide [Trusopt 2% Ophth Soln] 1 drop EYERT TID 01/21/17 [History] Fluticasone/Salmeterol [Advair 250-50 Diskus] 1 puff IH BID 01/21/17 [History] Folic Acid 1 mg PO DAILY 01/21/17 [History] Gabapentin [Neurontin] 600 mg PO BEDTIME 01/21/17 [History] Umeclidinium [place] [Incruse Ellipta*] 62.5 mcg IH DAILY 01/21/17 [History] Warfarin [Coumadin] 2.5 mg PO SUTUWETHFRSA@20 01/21/17 [History] cloNIDine [Catapres] 0.1 mg PO DAILY PRN 01/21/17 [History] Hydrocortisone [Hydrocortisone 2.5% Crm] 1 gm TOP TID 05/30/17 [History] Carvedilol [Coreg] 3.125 mg PO BIDM #60 tablet 06/02/17 [Rx] Furosemide [Lasix] 20 mg PO DAILY #90 tablet 06/02/17 [Rx] Furosemide [Lasix] 40 mg PO DAILY #1 tablet 06/02/17 [Rx] Past Medical History - Past Health History Medical/Surgical History: Denies Medical/Surgical History HEENT History: Reports: Cataract, Glaucoma Other HEENT History: wears glasses Respiratory History: Reports: COPD Genitourinary History: Reports: Urinary Incontinence Musculoskeletal History: Reports: Arthritis Neurological History: Reports: Alzheimers Disease, Other (See Below) Psychiatric History: Reports: Alzheimers Disease, Anxiety, Depression Other Oncologic History: skin cancer by eye 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 Denies: Fever, Chills HEENT: Reports: No Symptoms Respiratory: Reports: Shortness of Breath, Wheezing, Pleuritic Chest Pain, Cough , Sputum Cardiovascular: Reports: Chest Pain, Blood Pressure Problem. Denies: Lightheadedness, Palpitations GI/Abdominal: Denies: Abdominal Pain, Nausea, Vomiting Skin: Reports: No Symptoms Neurological: Reports: No Symptoms ED EXAM, GENERAL - Physical Exam Exam: See Below Exam Limited By: No Limitations General Appearance: Alert, No Apparent Distress Respiratory/Chest: No Respiratory Distress, Decreased Breath Sounds, Wheezing Cardiovascular: Normal Peripheral Pulses, Regular Rate, Rhythm, Other (+2 dependent bilateral LE edema) Peripheral Pulses: 2+: Radial (L), Radial (R) GI/Abdominal: Normal Bowel Sounds, Soft, Non-Tender Extremities: Pedal Edema Neurological: Alert Skin Exam: Warm, Dry, Intact, Normal Color EKG INTERPRETATION EKG Date: 10/03/17 Time: 01:33 Rhythm: NSR (with Sinus Arrhythmia) Rate (Beats/Min): 89 [place]: Normal P-Wave: Present QRS: Normal ST-T: Normal QT: Normal MS/PQ Interval: 0.24 Comparison: No Change EKG Interpretation Comments: Sinus Rhythm with Arrhythmia Course - Vital Signs Last Recorded V/S: Last Vital Signs Temp 36.5 C 10/03/17 01:28 Pulse 86 10/03/17 02:28 Resp 20 10/03/17 02:28 BP 181/73 H 10/03/17 02:28 Pulse Ox 97 10/03/17 02:28 - Orders/Labs/Meds Orders: Active Orders 24 hr Category Date Time Status EKG 12 Lead [EKG Documentation Completion] [RC] STAT Care 10/03/17 01:31 Active RT Aerosol Therapy [RC] ASDIRECTED Care 10/03/17 01:38 Active Lactated Ringers [Ringers, Lactated] 1,000 ml Med 10/03/17 01:31 Active IV ONETIME Sodium Chloride 0.9% [Saline Flush] Med 10/03/17 01:30 Active 10 ml FLUSH ASDIRECTED PRN Peripheral IV Insertion Adult [OM.PC] Routine Oth 10/03/17 01:30 Ordered Medication Orders Lactated Ringer's (Ringers, Lactated) 1,000 mls @ 50 mls/hr IV ONETIME ONE Stop: 10/03/17 21:30 Last Admin: 10/03/17 02:07 Dose: 50 mls/hr Sodium Chloride (Saline Flush) 10 ml FLUSH ASDIRECTED PRN PRN Reason: Keep Vein Open Last Admin: 10/03/17 02:19 Dose: 10 ml Labs: Laboratory Tests 10/03/17 10/03/17 10/03/17 Range/Units 02:00 02:00 02:00 WBC 8.9 (4.0-10.0) x10^3/uL RBC 3.86 L (4.00-5.50) x10^6/uL Hgb 11.9 L (12.0-16.0) g/dL Hct 38.0 (33.0-47.0) % MCV 98.4 H D (78.0-93.0) fL MCH 30.8 (26.0-32.0) pg MCHC 31.3 L (32.0-36.0) g/dL RDW Coeff of Neha 14.2 (10.0-15.0) % Plt Count 212 (130-400) x10^3/uL Neut % (Auto) 74.4 (50.0-80.0) % Lymph % (Auto) 12.4 L (25.0-50.0) % [place] % (Auto) 8.5 (2.0-11.0) % Eos % (Auto) 4.5 H (0.0-4.0) % Baso % (Auto) 0.2 (0.2-1.2) % PT 25.1 H (9.6-11.4) SEC INR 2.4 (2.0-3.5) D-Dimer, Quantitative 0.48 (<=0.58) mg/LFEU POC ABG pH (7.35-7.45) POC ABG pCO2 (35-45) mmHG POC ABG pO2 (80-105) mmHG POC ABG HCO3 (22-26) mmol/L POC ABG Total CO2 (23-27) mmol/L POC ABG O2 Sat (95-98) % POC ABG Base Excess (-2-3) mmol/L POC O2 Flow Rate L/min POC FiO2 Sodium 145 (136-145) mmol/L Potassium 4.0 (3.5-5.1) mmol/L Chloride 107 (98-107) mmol/L Carbon Dioxide 29 (21-32) mmol/L Anion Gap 13.0 (10-20) mmol/L BUN 20 H (7-18) mg/dL Creatinine 1.2 H (0.55-1.02) mg/dL Est Cr Clr Drug Dosing 25.14 mL/min Estimated GFR (MDRD) 42 Glucose 137 H (74-106) mg/dL Calcium 8.8 (8.5-10.1) mg/dL Corrected Calcium 9.60 (8.5-10.1) mg/dL Total Bilirubin 0.5 (0.2-1.0) mg/dL AST 30 (15-37) U/L ALT 23 (14-59) U/L Alkaline Phosphatase 96 (46-116) U/L Creatine Kinase 55 (26-192) U/L Troponin I 0.041 (<=0.056) ng/mL NT-Pro-B Natriuret Pep 2382 H (<=450) pg/mL Total Protein 6.9 (6.4-8.2) g/dL Albumin 3.0 L (3.4-5.0) g/dL Globulin 3.9 Albumin/Globulin Ratio 0.77 POC Result Comm 10/03/17 Range/Units 02:21 WBC (4.0-10.0) x10^3/uL RBC (4.00-5.50) x10^6/uL Hgb (12.0-16.0) g/dL Hct (33.0-47.0) % MCV (78.0-93.0) fL MCH (26.0-32.0) pg MCHC (32.0-36.0) g/dL RDW Coeff of Neha (10.0-15.0) % Plt Count (130-400) x10^3/uL Neut % (Auto) (50.0-80.0) % Lymph % (Auto) (25.0-50.0) % [place] % (Auto) (2.0-11.0) % Eos % (Auto) (0.0-4.0) % Baso % (Auto) (0.2-1.2) % PT (9.6-11.4) SEC INR (2.0-3.5) D-Dimer, Quantitative (<=0.58) mg/LFEU POC ABG pH 7.477 H (7.35-7.45) POC ABG pCO2 38 (35-45) mmHG POC ABG pO2 52 L* (80-105) mmHG POC ABG HCO3 28 H (22-26) mmol/L POC ABG Total CO2 29 H (23-27) mmol/L POC ABG O2 Sat 89 L (95-98) % POC ABG Base Excess 5 H (-2-3) mmol/L POC O2 Flow Rate 2.00 L/min POC FiO2 0.28 Sodium (136-145) mmol/L Potassium (3.5-5.1) mmol/L Chloride (98-107) mmol/L Carbon Dioxide (21-32) mmol/L Anion Gap (10-20) mmol/L BUN (7-18) mg/dL Creatinine (0.55-1.02) mg/dL Est Cr Clr Drug Dosing mL/min Estimated GFR (MDRD) Glucose (74-106) mg/dL Calcium (8.5-10.1) mg/dL Corrected Calcium (8.5-10.1) mg/dL Total Bilirubin (0.2-1.0) mg/dL AST (15-37) U/L ALT (14-59) U/L Alkaline Phosphatase (46-116) U/L Creatine Kinase (26-192) U/L Troponin I (<=0.056) ng/mL NT-Pro-B Natriuret Pep (<=450) pg/mL Total Protein (6.4-8.2) g/dL Albumin (3.4-5.0) g/dL Globulin Albumin/Globulin Ratio POC Result Comm Called critical res Meds: Medications Generic Name Dose Route Start Last Admin Trade Name Lukas PRN Reason Stop Dose Admin Lactated Ringer's 1,000 mls @ 50 mls/hr 10/03/17 01:31 10/03/17 02:07 Ringers, Lactated IV 10/03/17 21:30 50 mls/hr ONETIME ONE Administration Sodium Chloride 10 ml 10/03/17 01:30 10/03/17 02:19 Saline Flush FLUSH 10 ml ASDIRECTED PRN Administration Keep Vein Open Discontinued Medications Generic Name Dose Route Start Last Admin Trade Name Lukas PRN Reason Stop Dose Admin Albuterol/Ipratropium 3 ml 10/03/17 01:38 10/03/17 02:08 Duoneb 3.0-0.5 Mg/3 Ml NEB 10/03/17 01:39 3 ml ONETIME ONE Administration Methylprednisolone Sodium Succinate 125 mg 10/03/17 01:37 10/03/17 02:18 Solu-Medrol IVPUSH 10/03/17 01:38 125 mg ONETIME ONE Administration Departure - Departure Time of Disposition: 02:59 Disposition: Home, Self-Care 01 Condition: Fair Clinical Impression: Wheezing, SOB (shortness of breath) - Discharge Information *PRESCRIPTION DRUG MONITORING PROGRAM REVIEWED*: Not Applicable *COPY OF PRESCRIPTION DRUG MONITORING REPORT IN PATIENT LETI: Not Applicable Instructions: Chronic Obstructive Pulmonary Disease Exacerbation, [id number] Referrals: Lisa Piedra, [Physician] - Forms: ED Department Discharge Additional Instructions: 1. Stay well hydrated and rest 2. Call your doctor tomorrow to get your breathing medication refilled 3. Call us with any questions or concerns - Problem List Review Problem List Initiated/Reviewed/Updated: Yes - My Orders Last 24 Hours: My Active Orders 10/03/17 01:30 Sodium Chloride 0.9% [Saline Flush] 10 ml FLUSH ASDIRECTED PRN Peripheral IV Insertion Adult [OM.PC] Routine 10/03/17 01:31 EKG 12 Lead [EKG Documentation Completion] [RC] STAT Lactated Ringers [Ringers, Lactated] 1,000 ml IV ONETIME 10/03/17 01:38 RT Aerosol Therapy [RC] ASDIRECTED - Assessment/Plan Last 24 Hours: My Active Orders 10/03/17 01:30 Sodium Chloride 0.9% [Saline Flush] 10 ml FLUSH ASDIRECTED PRN Peripheral IV Insertion Adult [OM.PC] Routine 10/03/17 01:31 EKG 12 Lead [EKG Documentation Completion] [RC] STAT Lactated Ringers [Ringers, Lactated] 1,000 ml IV ONETIME 10/03/17 01:38 RT Aerosol Therapy [RC] ASDIRECTED Assessment:: SOB Wheezing COPD exacerbation Plan: Labs reviewed. No medical necessity for admission. Patient is doing well and appears stable. He work of breathing and wheezing has improved. Patient will be discharged home. It is recommend she follow up with her PCP for refills of her breathing medications.
[2017-10-03 02:38] VITALS: BP 181/73
[2017-10-03] MEDS ORDERED: Furosemide 20 MG/2 ML VIAL IV ONE (03:01)
== END 2017-10-03 03:49 | disposition home or self-care (01) ==
LOC: VM.ED 01:22
DX: J44.1 Chronic obstructive pulmonary disease with (acute) exacerbation (principal); F41.9 Anxiety disorder, unspecified; F32.9 Major depressive disorder, single episode, unspecified; Z79.899 Other long term (current) drug therapy; Z91.09 Other allergy status, other than to drugs and biological substances; Z88.0 Allergy status to penicillin; Z88.1 Allergy status to other antibiotic agents; Z91.040 Latex allergy status; Z88.8 Allergy status to other drugs, medicaments and biological substances
CPT/HCPCS: 36415; 36600; 80053; 82550; 82803; 83880; 84484; 85025; 85379; 85610; 93005; 94640; 96361; 96374; 96375; 99284-GF; 99285; J1940; J2930; J7050; J7120

== ENCOUNTER 2017-11-08 22:00 | Emergency (ER) | payer MEDICARE, OTHER ==
[2017-11-08] MEDS ORDERED: Sodium Chloride 0.9% 10 ML Syringe FLUSH PRN (22:22)
--- NOTE | 2017-11-08 22:31 | EDM.PDOC ---
ED HPI GENERAL MEDICAL PROBLEM - General Chief Complaint: Abdominal Pain Stated Complaint: Abdominal pain Time Seen by Provider: 11/08/17 22:21 Source of Information: Reports: Patient, Family, RN, RN Notes Reviewed History Limitations: Reports: No Limitations - History of Present Illness INITIAL COMMENTS - FREE TEXT/NARRATIVE: Patient presents to the ED at [facility] complaining of mid abdominal pain that started after she ate supper this evening. Patient states she ate bread with seeds in it and think this may be causing her pain. Patient has a history of diverticulitis. She denies any N/V/D. No chest pain or SOB. Patient denies any UTI symptoms. No fevers or chills. Onset: Today Onset Date: 11/08/17 Onset Time: 18:00 Duration: Waxing/Waning Location: Reports: Abdomen, Generalized Quality: Reports: Sharp, Stabbing Severity: Moderate Improves with: Reports: None Worsens with: Reports: Eating, Movement Context: Denies: Activity, Sick Contact, Trauma Associated Symptoms: Reports: No Other Symptoms Treatments GLASS ARTIST: Reports: Other (see below) (None) low mid abdomen Pain Score (Numeric/FACES): 8 - Related Data Allergies Allergy/AdvReac Type Severity Reaction Status Date / Time adhesive Allergy Cannot Verified 10/15/17 20:15 Remember benazepril HCl [From Lotrel] Allergy Cannot Verified 10/15/17 20:15 Remember Cephalosporins Allergy Rash Verified 10/15/17 20:15 latex Allergy Hives Verified 10/15/17 20:15 Penicillins Allergy Hives Verified 10/15/17 20:15 rofecoxib [From Vioxx] Allergy Cannot Verified 10/15/17 20:15 Remember sertraline HCl [From Zoloft] AdvReac Diarrhea Verified 10/15/17 20:15 Home Meds: Home Meds Diclofenac Sodium [Voltaren 1% Gel] 2 gm TOP QID PRN 03/08/13 [History] Furosemide [Lasix] 40 mg PO DAILY 03/08/13 [History] Gabapentin [Neurontin] 300 mg PO DAILY 03/08/13 [History] Isosorbide Mononitrate [Imdur] 60 mg PO DAILY 03/08/13 [History] Lisinopril [Prinivil] 60 mg PO DAILY 03/08/13 [History] Nitroglycerin [Nitrostat] 0.3 mg SL ASDIRECTED PRN 03/08/13 [History] Albuterol Sulfate [Albuterol Sulfate HFA] 1 - 2 puff INH Q4HR PRN 12/23/13 [ History] Brimonidine/Timolol [Combigan 0.2%/0.5% Ophth Soln] 1 drop EYEBOTH Q12H [History] Vit C/Vit E Ac/Lut/Mineral 1 [Prosight with Lutein] 1 tab PO DAILY 01/05/15 [ History] Acetaminophen [Tylenol] 650 mg PO Q4HR PRN 01/08/15 [History] Mirtazapine [Remeron] 15 mg PO BEDTIME tablet 04/03/16 [Rx] Vitamin B Complex [Balanced B-50] 1 each PO DAILY tab.er 04/03/16 [Rx] Bimatoprost [LUMIGAN 0.01% Ophth Soln] 1 drop EYEBOTH BEDTIME 01/21/17 [History] Cyanocobalamin/FA/Pyridoxine [B Complex-Folic Acid] 1 each PO DAILY 01/21/17 [ History] Dextran 70/Hypromellose/PF [Tears Naturale Free] 1 - 2 each EYEBOTH TID PRN 01/27 [History] Dorzolamide [Trusopt 2% Ophth Soln] 1 drop EYERT TID 01/21/17 [History] Fluticasone/Salmeterol [Advair 250-50 Diskus] 1 puff IH BID 01/21/17 [History] Folic Acid 1 mg PO DAILY 01/21/17 [History] Gabapentin [Neurontin] 600 mg PO BEDTIME 01/21/17 [History] Umeclidinium [place] [Incruse Ellipta*] 62.5 mcg IH DAILY 01/21/17 [History] Warfarin [Coumadin] 2.5 mg PO SUTUWETHFRSA@20 01/21/17 [History] cloNIDine [Catapres] 0.1 mg PO DAILY PRN 01/21/17 [History] Hydrocortisone [Hydrocortisone 2.5% Crm] 1 gm TOP TID 05/30/17 [History] Carvedilol [Coreg] 3.125 mg PO BIDM #60 tablet 06/02/17 [Rx] Furosemide [Lasix] 20 mg PO DAILY #90 tablet 06/02/17 [Rx] Furosemide [Lasix] 40 mg PO DAILY #1 tablet 06/02/17 [Rx] Metoclopramide HCl [Reglan] 10 mg PO Q8H 3 Days #9 tablet 11/09/17 [Rx] Nitrofurantoin Macrocrystal [Macrodantin] 100 mg PO BID 7 Days #14 capsule 11/09 [Rx] Past Medical History HEENT History: Reports: Cataract, Glaucoma Other HEENT History: wears glasses Cardiovascular History: Reports: Hypertension, MS Respiratory History: Reports: COPD Genitourinary History: Reports: Urinary Incontinence Musculoskeletal History: Reports: Arthritis Neurological History: Reports: Alzheimers Disease, Other (See Below) Psychiatric History: Reports: Alzheimers Disease, Anxiety, Depression Other Oncologic History: skin cancer by eye 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 Denies: Diarrhea, Nausea, Vomiting Skin: Reports: No Symptoms Neurological: Reports: No Symptoms. Denies: Dizziness, Headache ED EXAM, GI/ABD - Physical Exam Exam: See Below Exam Limited By: No Limitations General Appearance: Alert, No Apparent Distress (patient does not appear to be acutely ill) Respiratory/Chest: No Respiratory Distress, Lungs Clear, Decreased Breath Sounds Cardiovascular: Normal Peripheral Pulses, Irregularly Irregular GI/Abdominal Exam: Tender (general), Abnormal Bowel Sounds (Hyperactive x4). No : Guarding, Rigid, Rebound Neurological: Alert, Oriented Skin Exam: Warm, Dry, Intact, Normal Color Course - Vital Signs Last Recorded V/S: Last Vital Signs Temp 37.3 C 11/08/17 22:05 Pulse 102 H 11/08/17 22:05 Resp 20 11/08/17 22:05 BP 211/104 H 11/08/17 22:05 Pulse Ox 95 11/08/17 22:05 - Orders/Labs/Meds Orders: Active Orders 24 hr Category Date Time Status Abdomen Pelvis w Cont [CT] Stat Exams 11/08/17 22:26 Taken UA W/MICROSCOPIC [URIN] Stat Lab 11/08/17 22:30 Ordered Sodium Chloride 0.9% [Saline Flush] Med 11/08/17 22:22 Active 10 ml FLUSH ASDIRECTED PRN Peripheral IV Insertion Adult [OM.PC] Routine Oth 11/08/17 22:22 Ordered Medication Orders Sodium Chloride (Saline Flush) 10 ml FLUSH ASDIRECTED PRN PRN Reason: Keep Vein Open Labs: Laboratory Tests 11/08/17 11/08/17 11/08/17 Range/Units 22:30 22:40 22:40 WBC 5.9 (4.0-10.0) x10^3/uL RBC 3.58 L (4.00-5.50) x10^6/uL Hgb 11.3 L (12.0-16.0) g/dL Hct 35.7 (33.0-47.0) % MCV 99.7 H (78.0-93.0) fL MCH 31.6 (26.0-32.0) pg MCHC 31.7 L (32.0-36.0) g/dL RDW Coeff of Neha 15.9 H (10.0-15.0) % Plt Count 250 (130-400) x10^3/uL Neut % (Auto) 65.7 (50.0-80.0) % Lymph % (Auto) 17.2 L (25.0-50.0) % [place] % (Auto) 12.6 H (2.0-11.0) % Eos % (Auto) 4.2 H (0.0-4.0) % Baso % (Auto) 0.3 (0.2-1.2) % Sodium 145 (136-145) mmol/L Potassium 4.2 (3.5-5.1) mmol/L Chloride 110 H (98-107) mmol/L Carbon Dioxide 24 (21-32) mmol/L Anion Gap 15.2 (10-20) mmol/L BUN 28 H (7-18) mg/dL Creatinine 1.5 H (0.55-1.02) mg/dL Est Cr Clr Drug Dosing 20.11 mL/min Estimated GFR (MDRD) 33 Glucose 104 (74-106) mg/dL Lactic Acid (0.4-2.0) mmol/L Calcium 8.9 (8.5-10.1) mg/dL Corrected Calcium 9.46 (8.5-10.1) mg/dL Total Bilirubin 0.7 (0.2-1.0) mg/dL AST 25 (15-37) U/L ALT 22 (14-59) U/L Alkaline Phosphatase 76 (46-116) U/L C-Reactive Protein 0.7 (<=0.9) mg/dL Total Protein 7.3 (6.4-8.2) g/dL Albumin 3.3 L (3.4-5.0) g/dL Globulin 4.0 Albumin/Globulin Ratio 0.83 Amylase 41 (25-115) U/L Lipase 198 (73-393) U/L Urine Color Dark yellow H (YELLOW) Urine Appearance Turbid H (CLEAR) Urine pH 5.5 (5.0-8.0) Ur Specific [place] >=1.030 Urine Protein >=300 H (NEGATIVE) mg/dL Urine Glucose (UA) Negative (NEGATIVE) mg/dL Urine Ketones Negative (NEGATIVE) mg/dL Urine Occult Blood Moderate H (NEGATIVE) Urine Nitrite Negative (NEGATIVE) Urine Bilirubin Small H (NEGATIVE) Urine Urobilinogen 0.2 (0.2) EU/dL Ur Leukocyte Esterase Small H (NEGATIVE) Urine RBC 0-5 (NOT SEEN) /HPF Urine WBC 10-20 H (NOT SEEN) /HPF Urine WBC Clumps Occasional Ur Squamous Epith Cells Moderate H (NEGATIVE) /HPF Amorphous Sediment Moderate Urine Bacteria Few H (NEGATIVE) /HPF Hyaline Casts Moderate H (NEGATIVE) /HPF Urine Mucus Few H (NEGATIVE) /LPF 11/08/17 Range/Units 22:40 WBC (4.0-10.0) x10^3/uL RBC (4.00-5.50) x10^6/uL Hgb (12.0-16.0) g/dL Hct (33.0-47.0) % MCV (78.0-93.0) fL MCH (26.0-32.0) pg MCHC (32.0-36.0) g/dL RDW Coeff of Neha (10.0-15.0) % Plt Count (130-400) x10^3/uL Neut % (Auto) (50.0-80.0) % Lymph % (Auto) (25.0-50.0) % [place] % (Auto) (2.0-11.0) % Eos % (Auto) (0.0-4.0) % Baso % (Auto) (0.2-1.2) % Sodium (136-145) mmol/L Potassium (3.5-5.1) mmol/L Chloride (98-107) mmol/L Carbon Dioxide (21-32) mmol/L Anion Gap (10-20) mmol/L BUN (7-18) mg/dL Creatinine (0.55-1.02) mg/dL Est Cr Clr Drug Dosing mL/min Estimated GFR (MDRD) Glucose (74-106) mg/dL Lactic Acid 0.7 (0.4-2.0) mmol/L Calcium (8.5-10.1) mg/dL Corrected Calcium (8.5-10.1) mg/dL Total Bilirubin (0.2-1.0) mg/dL AST (15-37) U/L ALT (14-59) U/L Alkaline Phosphatase (46-116) U/L C-Reactive Protein (<=0.9) mg/dL Total Protein (6.4-8.2) g/dL Albumin (3.4-5.0) g/dL Globulin Albumin/Globulin Ratio Amylase (25-115) U/L Lipase (73-393) U/L Urine Color (YELLOW) Urine Appearance (CLEAR) Urine pH (5.0-8.0) Ur Specific [place] Urine Protein (NEGATIVE) mg/dL Urine Glucose (UA) (NEGATIVE) mg/dL Urine Ketones (NEGATIVE) mg/dL Urine Occult Blood (NEGATIVE) Urine Nitrite (NEGATIVE) Urine Bilirubin (NEGATIVE) Urine Urobilinogen (0.2) EU/dL Ur Leukocyte Esterase (NEGATIVE) Urine RBC (NOT SEEN) /HPF Urine WBC (NOT SEEN) /HPF Urine WBC Clumps Ur Squamous Epith Cells (NEGATIVE) /HPF Amorphous Sediment Urine Bacteria (NEGATIVE) /HPF Hyaline Casts (NEGATIVE) /HPF Urine Mucus (NEGATIVE) /LPF Meds: Medications Generic Name Dose Route Start Last Admin Trade Name Freq PRN Reason Stop Dose Admin Sodium Chloride 10 ml 11/08/17 22:22 Saline Flush FLUSH ASDIRECTED PRN Keep Vein Open Discontinued Medications Generic Name Dose Route Start Last Admin Trade Name Lukas PRN Reason Stop Dose Admin Iopamidol 100 ml 11/08/17 23:26 11/08/17 23:37 Isovue-300 (61%) IVPUSH 11/08/17 23:27 100 ml ONETIME ONE Administration - Radiology Interpretation Free Text/Narrative:: CT Abd/Pelvis: Cardiomegaly; Gastroparesis and/or Gastritis; Mild parechymal liver disease; Atherosclerotic, tortuous ectatic aorta iliac arteries. No evidence of high-grade/acute arterial occlusion. No evidence of aortic dissection; prior dortohea; surgical changes of the small bowels appear unremarkable; increased bilateral pleural effusions See scanned documents in EMR for details CT Results Date: 11/09/17 CT Results Time: 00:08 Departure - Departure Time of Disposition: 00:24 Disposition: Home, Self-Care 01 Condition: Good Clinical Impression: Gastroparesis Gastritis Qualifiers: Gastritis type: unspecified gastritis Chronicity: acute Gastritis bleeding: without bleeding Qualified Code(s): K29.00 - Acute gastritis without bleeding Urinary tract infection Qualifiers: Urinary tract infection type: acute cystitis Hematuria presence: with hematuria Qualified Code(s): N30.01 - Acute cystitis with hematuria - Discharge Information *PRESCRIPTION DRUG MONITORING PROGRAM REVIEWED*: Not Applicable *COPY OF PRESCRIPTION DRUG MONITORING REPORT IN PATIENT LETI: Not Applicable Prescriptions: Metoclopramide HCl [Reglan] 10 mg PO Q8H 3 Days #9 tablet Nitrofurantoin Macrocrystal [Macrodantin] 100 mg PO BID 7 Days #14 capsule Instructions: Gastritis, Adult Referrals: Lisa Piedra DO [Primary Care Provider] - Forms: ED Department Discharge Additional Instructions: 1. Stay well hydrated and rest 2. Start medication for UTI 3. Use medication for gastritis until gone 4. See your Primary to follow up - Problem List Review Problem List Initiated/Reviewed/Updated: Yes - My Orders Last 24 Hours: My Active Orders 11/08/17 22:22 Sodium Chloride 0.9% [Saline Flush] 10 ml FLUSH ASDIRECTED PRN Peripheral IV Insertion Adult [OM.PC] Routine 11/08/17 22:26 Abdomen Pelvis w Cont [CT] Stat 11/08/17 22:30 UA W/MICROSCOPIC [URIN] Stat - Assessment/Plan Last 24 Hours: My Active Orders 11/08/17 22:22 Sodium Chloride 0.9% [Saline Flush] 10 ml FLUSH ASDIRECTED PRN Peripheral IV Insertion Adult [OM.PC] Routine 11/08/17 22:26 Abdomen Pelvis w Cont [CT] Stat 11/08/17 22:30 UA W/MICROSCOPIC [URIN] Stat Assessment:: Gastroparesis Gastritis UTI Plan: Will start patient on Macrobid for UTI. Reglan for gastritis and gastroparesis. Need clinic follow up.
[2017-11-08 23:06] LABS: ANION GAP 15.2 mmol/L (10-20)
[2017-11-08] MEDS: Iopamidol 612 MG/ML 100 ML Bottle IVPUSH ONE (23:37)
[2017-11-09] MEDS: Metoclopramide 10 MG/2 ML SDV IVPUSH ONE (01:05)
[2017-11-09] MEDS: Ondansetron 4 MG/2 ML SDV IVPUSH ONE (01:09)
[2017-11-09 04:20] VITALS: BP 180/90
== END 2017-11-09 01:15 | disposition home or self-care (01) ==
LOC: VM.ED 22:00
DX: K31.84 Gastroparesis (principal); K29.00 Acute gastritis without bleeding; N30.01 Acute cystitis with hematuria; I10 Essential (primary) hypertension; I25.2 Old myocardial infarction; G30.9 Alzheimer's disease, unspecified; F02.80 Dementia in other diseases classified elsewhere, unspecified severity, without behavioral disturbance, psychotic disturbance, mood disturbance, and anxiety; Z79.899 Other long term (current) drug therapy; Z91.040 Latex allergy status; Z88.0 Allergy status to penicillin; Z91.09 Other allergy status, other than to drugs and biological substances; Z88.1 Allergy status to other antibiotic agents
CPT/HCPCS: 36415; 74177; 80053; 81001; 82150; 83605; 83690; 85025; 86140; 96374; 96375; 99284; J2405; J2765; Q9967

== ENCOUNTER 2017-11-25 16:57 | Inpatient (IN) | payer MEDICARE, OTHER ==
--- NOTE | 2017-11-25 17:14 | EDM.PDOC ---
ED HPI GENERAL MEDICAL PROBLEM - General Chief Complaint: General Stated Complaint: SOB Time Seen by Provider: 11/25/17 17:05 Source of Information: Reports: Patient, EMS History Limitations: Reports: No Limitations - History of Present Illness INITIAL COMMENTS - FREE TEXT/NARRATIVE: Patient comes into the Emergency department with complaint of shortness of breath and abdominal discomfort for approximately 2 hours. Patient contacted 911 and was transported by EMS emergency room. Patient states she had diarrhea approximately 2 weeks ago but that has resolved. She states that she has chronic shortness of breath and she is on home O2. She was recently hospitalized in October and was treated for UTI approx 3 weeks ago. The abdominal discomfort is generalized and does not radiate, she denies any chest pain, fever, nausea, vomiting, dizziness, numbness or tingling . The pain she describes it as feeling like a gas bubble. Pt last CT scan completed on Nov 08, 2017 Last Xray completed on Oct 15, 2017 Onset: Sudden Severity: Mild Improves with: Reports: None Worsens with: Reports: None Abdomen Pain Score (Numeric/FACES): 4 - Related Data Allergies Allergy/AdvReac Type Severity Reaction Status Date / Time adhesive Allergy Cannot Verified 11/25/17 17:25 Remember benazepril HCl [From Lotrel] Allergy Cannot Verified 11/25/17 17:25 Remember Cephalosporins Allergy Rash Verified 11/25/17 17:25 latex Allergy Hives Verified 11/25/17 17:25 Penicillins Allergy Hives Verified 11/25/17 17:25 rofecoxib [From Vioxx] Allergy Cannot Verified 11/25/17 17:25 Remember sertraline HCl [From Zoloft] AdvReac Diarrhea Verified 11/25/17 17:25 Home Meds: Home Meds Diclofenac Sodium [Voltaren 1% Gel] 2 gm TOP QID PRN 03/08/13 [History] Furosemide [Lasix] 40 mg PO DAILY 03/08/13 [History] Gabapentin [Neurontin] 300 mg PO DAILY 03/08/13 [History] Isosorbide Mononitrate [Imdur] 60 mg PO DAILY 03/08/13 [History] Lisinopril [Prinivil] 60 mg PO DAILY 03/08/13 [History] Nitroglycerin [Nitrostat] 0.3 mg SL ASDIRECTED PRN 03/08/13 [History] Albuterol Sulfate [Albuterol Sulfate HFA] 1 - 2 puff INH Q4HR PRN 12/23/13 [ History] Brimonidine/Timolol [Combigan 0.2%/0.5% Ophth Soln] 1 drop EYEBOTH Q12H [History] Vit C/Vit E Ac/Lut/Mineral 1 [Prosight with Lutein] 1 tab PO DAILY 01/05/15 [ History] Acetaminophen [Tylenol] 650 mg PO Q4HR PRN 01/08/15 [History] Mirtazapine [Remeron] 15 mg PO BEDTIME tablet 04/03/16 [Rx] Vitamin B Complex [Balanced B-50] 1 each PO DAILY tab.er 04/03/16 [Rx] Bimatoprost [LUMIGAN 0.01% Ophth Soln] 1 drop EYEBOTH BEDTIME 01/21/17 [History] Cyanocobalamin/FA/Pyridoxine [B Complex-Folic Acid] 1 each PO DAILY 01/21/17 [ History] Dextran 70/Hypromellose/PF [Tears Naturale Free] 1 - 2 each EYEBOTH TID PRN 01/27 [History] Dorzolamide [Trusopt 2% Ophth Soln] 1 drop EYERT TID 01/21/17 [History] Fluticasone/Salmeterol [Advair 250-50 Diskus] 1 puff IH BID 01/21/17 [History] Folic Acid 1 mg PO DAILY 01/21/17 [History] Gabapentin [Neurontin] 600 mg PO BEDTIME 01/21/17 [History] Umeclidinium [place] [Incruse Ellipta*] 62.5 mcg IH DAILY 01/21/17 [History] Warfarin [Coumadin] 2.5 mg PO SUTUWETHFRSA@20 01/21/17 [History] cloNIDine [Catapres] 0.1 mg PO DAILY PRN 01/21/17 [History] Hydrocortisone [Hydrocortisone 2.5% Crm] 1 gm TOP TID 05/30/17 [History] Carvedilol [Coreg] 3.125 mg PO BIDM #60 tablet 06/02/17 [Rx] Furosemide [Lasix] 20 mg PO DAILY #90 tablet 06/02/17 [Rx] Furosemide [Lasix] 40 mg PO DAILY #1 tablet 06/02/17 [Rx] Metoclopramide HCl [Reglan] 10 mg PO Q8H 3 Days #9 tablet 11/09/17 [Rx] Nitrofurantoin Macrocrystal [Macrodantin] 100 mg PO BID 7 Days #14 capsule 11/09 [Rx] Past Medical History - Past Health History Medical/Surgical History: Denies Medical/Surgical History HEENT History: Reports: Cataract, Glaucoma Other HEENT History: wears glasses Cardiovascular History: Reports: Hypertension, [place] Respiratory History: Reports: COPD Gastrointestinal History: Reports: GERD Genitourinary History: Reports: Urinary Incontinence Musculoskeletal History: Reports: Arthritis Neurological History: Reports: Alzheimers Disease, Other (See Below) Psychiatric History: Reports: Alzheimers Disease, Anxiety, Depression Other Oncologic History: skin cancer by eye Other 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 - Past Surgical History HEENT Surgical History: Reports: Cataract Surgery GI Surgical History: Reports: Appendectomy, Cholecystectomy Social & Family History - Family History Family Medical History: Noncontributory - Caffeine Use Caffeine Use: Reports: Coffee - Living Situation & Occupation Occupation: Retired ED ROS GENERAL - Review of Systems Review Of Systems: See Below Constitutional: Reports: No Symptoms HEENT: Reports: No Symptoms Respiratory: Reports: Shortness of Breath Cardiovascular: Reports: Dyspnea on Exertion Endocrine: Reports: No Symptoms GI/Abdominal: Reports: Abdominal Pain : Reports: No Symptoms Musculoskeletal: Reports: No Symptoms Skin: Reports: No Symptoms Neurological: Reports: No Symptoms Psychiatric: Reports: No Symptoms Hematologic/Lymphatic: Reports: No Symptoms Immunologic: Reports: No Symptoms ED EXAM, GENERAL - Physical Exam Exam: See Below Exam Limited By: No Limitations General Appearance: Alert, WD/WN, No Apparent Distress Head: Atraumatic, Normocephalic Neck: Normal Inspection, Supple, Non-Tender, Full Range of Motion Respiratory/Chest: No Accessory Muscle Use, Chest Non-Tender, Decreased Breath Sounds, Rhonchi Cardiovascular: Normal Peripheral Pulses, No JVD, No Murmur, Other (2+ edema ) GI/Abdominal: Normal Bowel Sounds, Soft, Tender Back Exam: Normal Inspection, Full Range of Motion Extremities: Normal Inspection, Normal Range of Motion, Non-Tender, Normal Capillary Refill Neurological: Alert, Oriented, Normal Cognition, Normal Reflexes Psychiatric: Normal Affect, Normal Mood Skin Exam: Warm, Dry, Intact, Normal Color, No Rash Course - Vital Signs Last Recorded V/S: Last Vital Signs Temp 36.4 C 11/25/17 16:57 Pulse 86 11/25/17 18:30 Resp 16 11/25/17 18:30 BP 199/89 H 11/25/17 18:41 Pulse Ox 94 L 11/25/17 18:30 - Orders/Labs/Meds Orders: Active Orders 24 hr Category Date Time Status Admission Status [Patient Status] [ADT] Routine ADT 11/25/17 18:33 Active EKG Documentation Completion [RC] STAT Care 11/25/17 17:06 Active Oxygen Therapy, ED [RC] ASDIRECTED Care 11/25/17 17:39 Active Abdomen 2V AP Flat Upright [CR] Stat Exams 11/25/17 17:23 Taken Chest 2V [CR] Stat Exams 11/25/17 17:07 Taken Sodium Chloride 0.9% [Saline Flush] Med 11/25/17 17:06 Active 10 ml FLUSH ASDIRECTED PRN Peripheral IV Insertion Adult [OM.PC] Stat Oth 11/25/17 17:06 Ordered Medication Orders Sodium Chloride (Saline Flush) 10 ml FLUSH ASDIRECTED PRN PRN Reason: Keep Vein Open Last Admin: 11/25/17 18:06 Dose: 10 ml Labs: Laboratory Tests 11/25/17 11/25/17 11/25/17 Range/Units 17:40 17:45 17:45 WBC 6.5 (4.0-10.0) x10^3/uL RBC 3.96 L (4.00-5.50) x10^6/uL Hgb 12.6 (12.0-16.0) g/dL Hct 39.6 (33.0-47.0) % MCV 100.0 H (78.0-93.0) fL MCH 31.8 (26.0-32.0) pg MCHC 31.8 L (32.0-36.0) g/dL RDW Coeff of Neha 15.2 H (10.0-15.0) % Plt Count 217 (130-400) x10^3/uL Neut % (Auto) 76.2 (50.0-80.0) % Lymph % (Auto) 10.8 L (25.0-50.0) % [place] % (Auto) 9.1 (2.0-11.0) % Eos % (Auto) 3.6 (0.0-4.0) % Baso % (Auto) 0.3 (0.2-1.2) % Sodium 145 (136-145) mmol/L Potassium 3.7 (3.5-5.1) mmol/L Chloride 108 H (98-107) mmol/L Carbon Dioxide 30 (21-32) mmol/L Anion Gap 10.7 (10-20) mmol/L BUN 16 (7-18) mg/dL Creatinine 1.1 H (0.55-1.02) mg/dL Est Cr Clr Drug Dosing 26.16 mL/min Estimated GFR (MDRD) 47 Glucose 112 H (74-106) mg/dL Calcium 9.5 (8.5-10.1) mg/dL Corrected Calcium 10.06 (8.5-10.1) mg/dL Total Bilirubin 1.3 H (0.2-1.0) mg/dL AST 23 (15-37) U/L ALT 26 (14-59) U/L Alkaline Phosphatase 92 (46-116) U/L Troponin I < 0.017 (<=0.056) ng/mL NT-Pro-B Natriuret Pep 6734 H (<=450) pg/mL Total Protein 7.4 (6.4-8.2) g/dL Albumin 3.3 L (3.4-5.0) g/dL Globulin 4.1 Albumin/Globulin Ratio 0.80 Urine Color Yellow (YELLOW) Urine Appearance Slightly cloudy H (CLEAR) Urine pH 6.0 (5.0-8.0) Ur Specific [place] 1.020 Urine Protein >=300 H (NEGATIVE) mg/dL Urine Glucose (UA) Negative (NEGATIVE) mg/dL Urine Ketones Negative (NEGATIVE) mg/dL Urine Occult Blood Small H (NEGATIVE) Urine Nitrite Negative (NEGATIVE) Urine Bilirubin Negative (NEGATIVE) Urine Urobilinogen 0.2 (0.2) EU/dL Ur Leukocyte Esterase Negative (NEGATIVE) Urine RBC 5-10 H (NOT SEEN) /HPF Urine WBC 0-5 (NOT SEEN) /HPF Ur Squamous Epith Cells Moderate H (NEGATIVE) /HPF Urine Bacteria Few H (NEGATIVE) /HPF Hyaline Casts Few H (NEGATIVE) /HPF Urine Mucus Few H (NEGATIVE) /LPF Urine Yeast (Budding) Occasional Meds: Medications Generic Name Dose Route Start Last Admin Trade Name Freq PRN Reason Stop Dose Admin Sodium Chloride 10 ml 11/25/17 17:06 11/25/17 18:06 Saline Flush FLUSH 10 ml ASDIRECTED PRN Administration Keep Vein Open Discontinued Medications Generic Name Dose Route Start Last Admin Trade Name Freq PRN Reason Stop Dose Admin Clonidine HCl 0.1 mg 11/25/17 18:32 11/25/17 18:41 Catapres PO 11/25/17 18:33 0.1 mg ONETIME ONE Administration Furosemide 20 mg 11/25/17 17:26 11/25/17 18:06 Lasix IV 11/25/17 17:27 20 mg ONETIME ONE Administration Departure - Departure Time of Disposition: 18:35 Disposition: Admitted As Inpatient 64 Condition: Good Clinical Impression: Congestive heart failure Qualifiers: Heart failure type: unspecified Heart failure chronicity: acute Qualified Code( s): I50.9 - Heart failure, unspecified - Discharge Information Referrals: Lisa Piedra DO [Primary Care Provider] - Forms: ED Department Discharge - My Orders Last 24 Hours: My Active Orders 11/25/17 17:06 EKG Documentation Completion [RC] STAT Sodium Chloride 0.9% [Saline Flush] 10 ml FLUSH ASDIRECTED PRN Peripheral IV Insertion Adult [OM.PC] Stat 11/25/17 17:07 Chest 2V [CR] Stat 11/25/17 17:23 Abdomen 2V AP Flat Upright [CR] Stat 11/25/17 17:39 Oxygen Therapy, ED [RC] ASDIRECTED 11/25/17 18:33 Admission Status [Patient Status] [ADT] Routine - Assessment/Plan Last 24 Hours: My Active Orders 11/25/17 17:06 EKG Documentation Completion [RC] STAT Sodium Chloride 0.9% [Saline Flush] 10 ml FLUSH ASDIRECTED PRN Peripheral IV Insertion Adult [OM.PC] Stat 11/25/17 17:07 Chest 2V [CR] Stat 11/25/17 17:23 Abdomen 2V AP Flat Upright [CR] Stat 11/25/17 17:39 Oxygen Therapy, ED [RC] ASDIRECTED 11/25/17 18:33 Admission Status [Patient Status] [ADT] Routine Assessment:: 1. Shortness of breath 2. Generalized abdominal pain-resolved on own Plan: 1. labs completed in ER. Results reviewed with the patient 2. Xray completed in ER. results reviewed with the patient 3. EKG completed in ER. 4. Lasix given in the ER 5. Pt resting comfortably and pain has decreased 6. Dr. Monreal contacted regarding condition. She agrees to admit pt to acute care. Per her request she would like clonidine 0.1mg given prior to the pt being admitted to the hospital.
[2017-11-25] MEDS ORDERED: Furosemide 20 MG/2 ML VIAL IV ONE (17:26)
[2017-11-25] MEDS: Sodium Chloride 0.9% 10 ML Syringe FLUSH PRN (18:06)
[2017-11-25 18:20] LABS: CHLORIDE,CL 108 mmol/L (98-107); SODIUM,NA 145 mmol/L (136-145)
[2017-11-25 18:22] LABS: ANION GAP 10.7 mmol/L (10-20)
[2017-11-25] MEDS ORDERED: cloNIDine 0.1 MG Tab PO ONE (18:32)
--- NOTE | 2017-11-25 19:13 | PCM.HP ---
H&P History of Present Illness - General Date of Service: 11/25/17 Admit Problem/Dx: Admission Diagnosis/Problem Admission Diagnosis/Problem Congestive heart failure CC: SOB HPI:Ppt is an 87 year old female who became SOB today at home and was brought to the ER. She was hospitalized for 10 days on 10/15 for severe sob, chest pain, abnormal EKG and Hypertension. Her troponin was positive and she was thought to have had an AK Workup, however, was negative for obstructive CAD and all the abnormalities wre ascribed to diastolic CHF and HTN. There was a question of non compliance with medications but pt states she has been taking her meds. On 11/21 er office bp was 120/80, a few days later it was 160/80 when she forgot to take one dose of coreg. Pt states she has been anxious about her living situation as well as a granddaughter who is having some bullying at school. In ER her bp was elevated with a systolic of 200 and she is admitted for treatment of her BP. Her BNP was 6000 , on previous admission it was over 11, 000 and she does have pl effusions so she will be diuresed as well for diastolic CHF exacerbation. Left Heart Cath 10/15/2017 Diagnostic Findings: Coronary Angiography The coronary circulation is right dominant and severely tortuous. Left Main Left main artery: The segment is large. Angiography shows mild atherosclerosis. Left Anterior Descending Left anterior descending artery: The segment is large. Mid left anterior descending: Myocardial bridging. First diagonal: The segment is large. There is a 60 % stenosis in the ostial portion of the segment. Second diagonal: The segment is large. There is a 50 % stenosis in the proximal portion of the segment. Circumflex Circumflex artery: The segment is large. Angiography shows mild atherosclerosis. First obtuse marginal: The segment is large. Angiography shows mild atherosclerosis. Right Coronary Right coronary artery: The segment is large. Angiography shows mild atherosclerosis. Right posterior descending artery: The segment is large. Angiography shows mild atherosclerosis. Right Posterolateral Segment: The segment is large. Angiography shows mild atherosclerosis. ECHO:10/16/2017 Clinical History Comment: 10/16/17-[facility] mild nonobstructive CAD Conclusions Overall Conclusions This is an abnormal study. Left Ventricle: There is mild concentric hypertrophy of the left ventricle. Increased left ventricular wall thickness. The ejection fraction is visually estimated to be 55 %. Left Atrium: Dilated left atrium. Aortic Valve: Moderate aortic regurgitation. Mild aortic stenosis. Aorta: There is dilatation of the ascending aorta measuring 43.0 mm. Mitral Valve: Mild mitral regurgitation. Pericardium: Left side pleural effusion. MEDS:Outpatient Medications metoclopramide (REGLAN) 10 mg tablet Q8H fluticasone-salmeterol (ADVAIR) 250-50 mcg/dose discus Inhale 1 puff orally 2 times a day Rinse mouth after use. albuterol HFA (ALBUTEROL, VENTOLIN BRAND,) 108 (90 Base) MCG/ACT inhaler Inhale 1-2 puffs orally every 4 to 6 hours as needed for shortness of breath Shake well before using. furosemide (LASIX) 40 mg tablet Take 1/2 pill daily carVEDilol (COREG) 3.125 mg tablet () Take 2 tablets (6.25 mg) by mouth 2 times a day with meals folic acid 1 mg tablet Take 1 mg by mouth 1 time per day B Complex Vitamins (VITAMIN-B COMPLEX) TABS tablet Take 1 tablet by mouth 1 time per day JANTOVEN 2.5 MG tablet [facility] ANTICOAGULATION PT:TAKE DIRECTED. ( INSURANCE PURPOSES: 1.25-2.5MG DAILY DOSE RANGE) CALL [phone] IF QUESTIONS. COMBIGAN 0.2-0.5 % ophthalmic solution PLACE 1 DROP INTO BOTH EYES EVERY 12 HOURS nitroglycerin (NITROSTAT) 0.4 mg sublingual tablet Dissolve 1 tablet (0.4 mg) under the tongue Every 5 minutes as needed for chest pain isosorbide mononitrate (IMDUR) 120 mg SR tablet (24 hr) TAKE 1 TAB BY MOUTH ONCE DAILY lisinopril (PRINIVIL, ZESTRIL) 40 mg tablet TAKE 1&1/2 TABLETS (60MG) B Y MOUTH DAILY mirtazapine (REMERON) 15 mg tablet TAKE 1 TABLET (15 MG TOTAL) BY MOUTH EVERY NIGHT AT BEDTIME magnesium oxide (MAG-OX 400) 400 mg tablet Take 1 tablet (400 mg) by mouth 1 time per day hydrocortisone, topical, (HYTONE) 2.5 % cream Apply 1 g to affected area 3 times a day umeclidinium (INCRUSE ELLIPTA) 62.5 mcg/puff inhaler Inhale 1 puff orally 1 time per day gabapentin (NEURONTIN) 300 mg capsule 1 capsule by mouth morning and 2 capsules at bedtime Glycerin-Polysorbate 80 (REFRESH DRY EYE THERAPY OPTH) Place 1 drop into both eyes 3 times a day as needed acetaminophen (TYLENOL) 325 mg tablet Take 325-650 mg by mouth Every 4 hours as needed LUMIGAN 0.01 % ophthalmic solution PLACE 1 DROP INTO BOTH EYES EVERY NIGHT AT BEDTIME dorzolamide (TRUSOPT) 2 % SOLN Place 1 drop into the right eye 3 times a day VOLTAREN 1 % gel APPLY 2 G TO AFFECTED AREA 4 TIMES A DAY NEEDED multivitamin/lutein (PROSIGHT;OCUVITE-LUTEIN) capsule Take 1 capsule by mouth 1 time per day. Oxygen therapy 2 L by Nasal route 1 time per day Patient has been using 4L at [facility]. 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, valve unspecified, unspecified cause Personal history of tuberculosis Chronic atrial fibrillation Osteoarthritis of shoulder skilled nursing current use of anticoagulant therapy Acid reflux Hereditary and idiopathic peripheral neuropathy Occipital cerebral infarction Moderate mitral regurgitation Aortic incompetence Pulmonary hypertension due to left heart disease TR (tricuspid regurgitation) Small bowel obstruction due to adhesions Pseudophakos Presbyopia Myopia CAD (coronary artery disease) Glaucoma 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 Angiography shows mild atherosclerosis. Left Anterior Descending Left anterior descending artery: The segment is large. Mid left anterior descending: Myocardial bridging. First diagonal: The segment is large. There is a 60 % stenosis in the ostial portion of the segment. Second diagonal: The segment is large. There is a 50 % stenosis in the proximal portion of the segment. Circumflex Circumflex artery: The segment is large. Angiography shows mild atherosclerosis. First obtuse marginal: The segment is large. Angiography shows mild atherosclerosis. Right Coronary Right coronary artery: The segment is large. Angiography shows mild atherosclerosis. Right posterior descending artery: The segment is large. Angiography shows mild atherosclerosis. Right Posterolateral Segment: The segment is large. Angiography shows mild atherosclerosis. 10/16/17 Findings Left Ventricle: Normal left ventricular size. There is mild concentric hypertrophy of the left ventricle. Increased left ventricular wall thickness. Low normal left ventricular systolic function. The ejection fraction is visually estimated to be 50 %. Left Atrium: Dilated left atrium. Aortic Valve: The aortic valve is tricuspid. Moderate aortic cuspal calcification. Reduced aortic cuspal mobility. Moderate aortic regurgitation. Aorta: There is dilatation of the ascending aorta measuring 46.0 mm. Mitral Valve: Normal mitral valve structure. Mild mitral leaflet thickening. Trivial mitral regurgitation. Right Ventricle: Normal right ventricular size. Normal right ventricular systolic function. Normal right ventricular wall thickness. Pulmonary artery systolic pressure is measured at 56 mmHg. Pulmonary Artery: [id number] pulmonary artery hypertension. Right Atrium: Dilated right atrium. Tricuspid Valve: Normal tricuspid valve structure. Mild tricuspid regurgitation. Pulmonic Valve: Normal pulmonary valve structure. IVC: Dilated IVC with minimal respirophasic changes. Pericardium: No significant pericardial effusion. Bilateral pleural effusion. Abdomen Pain Score (Numeric/FACES): 4 - Related Data Allergies/Adverse Reactions: Allergies Allergy/AdvReac Type Severity Reaction Status Date / Time adhesive Allergy Cannot Verified 11/25/17 17:25 Remember benazepril HCl [From Lotrel] Allergy Cannot Verified 11/25/17 17:25 Remember Cephalosporins Allergy Rash Verified 11/25/17 17:25 latex Allergy Hives Verified 11/25/17 17:25 Penicillins Allergy Hives Verified 11/25/17 17:25 rofecoxib [From Vioxx] Allergy Cannot Verified 11/25/17 17:25 Remember sertraline HCl [From Zoloft] AdvReac Diarrhea Verified 11/25/17 17:25 Home Medications: Home Meds Diclofenac Sodium [Voltaren 1% Gel] 2 gm TOP QID PRN 03/08/13 [History] Gabapentin [Neurontin] 300 mg PO DAILY 03/08/13 [History] Isosorbide Mononitrate [Imdur] 120 mg PO DAILY 03/08/13 [History] Lisinopril [Prinivil] 60 mg PO DAILY 03/08/13 [History] Nitroglycerin [Nitrostat] 0.4 mg SL ASDIRECTED PRN 03/08/13 [History] Albuterol Sulfate [Albuterol Sulfate HFA] 1 - 2 puff INH Q4HR PRN 12/23/13 [ History] Brimonidine/Timolol [Combigan 0.2%/0.5% Ophth Soln] 1 drop EYEBOTH Q12H [History] Vit C/Vit E Ac/Lut/Mineral 1 [Prosight with Lutein] 1 tab PO DAILY 01/05/15 [ History] Acetaminophen [Tylenol] 650 mg PO Q4HR PRN 01/08/15 [History] Mirtazapine [Remeron] 15 mg PO BEDTIME tablet 04/03/16 [Rx] Vitamin B Complex [Balanced B-50] 1 each PO DAILY tab.er 04/03/16 [Rx] Bimatoprost [LUMIGAN 0.01% Ophth Soln] 1 drop EYEBOTH BEDTIME 01/21/17 [History] Cyanocobalamin/FA/Pyridoxine [B Complex-Folic Acid] 1 each PO DAILY 01/21/17 [ History] Dextran 70/Hypromellose/PF [Tears Naturale Free] 1 - 2 each EYEBOTH TID PRN 01/27 [History] Dorzolamide [Trusopt 2% Ophth Soln] 1 drop EYERT TID 01/21/17 [History] Fluticasone/Salmeterol [Advair 250-50 Diskus] 1 puff IH BID 01/21/17 [History] Folic Acid 1 mg PO DAILY 01/21/17 [History] Gabapentin [Neurontin] 600 mg PO BEDTIME 01/21/17 [History] Umeclidinium [place] [Incruse Ellipta*] 62.5 mcg IH DAILY 01/21/17 [History] Warfarin [Coumadin] 2.5 mg PO SUTUWETHFRSA@20 01/21/17 [History] cloNIDine [Catapres] 0.1 mg PO DAILY PRN 01/21/17 [History] Hydrocortisone [Hydrocortisone 2.5% Crm] 1 gm TOP TID 05/30/17 [History] Carvedilol [Coreg] 3.125 mg PO BIDM #60 tablet 06/02/17 [Rx] Furosemide [Lasix] 20 mg PO DAILY #90 tablet 06/02/17 [Rx] Metoclopramide HCl [Reglan] 10 mg PO Q8H 3 Days #9 tablet 11/09/17 [Rx] Nitrofurantoin Macrocrystal [Macrodantin] 100 mg PO BID 7 Days #14 capsule 11/09 [Rx] Magnesium Oxide [Magnesium] 400 mg PO DAILY 11/25/17 [History] Past Medical History - Past Health History Medical/Surgical History: Denies Medical/Surgical History HEENT History: Reports: Cataract, Glaucoma Other HEENT History: wears glasses Cardiovascular History: Reports: Hypertension, [place] Respiratory History: Reports: COPD Gastrointestinal History: Reports: GERD Genitourinary History: Reports: Urinary Incontinence Musculoskeletal History: Reports: Arthritis Neurological History: Reports: Alzheimers Disease, Other (See Below) Psychiatric History: Reports: Alzheimers Disease, Anxiety, Depression Other Oncologic History: skin cancer by eye Other 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 - Past Surgical History HEENT Surgical History: Reports: Cataract Surgery GI Surgical History: Reports: Appendectomy, Cholecystectomy Social & Family History - Family History Family Medical History: Noncontributory - Tobacco Use Smoking Status *Q: Never Smoker - Caffeine Use Caffeine Use: Reports: None, Coffee - Alcohol Use Alcohol Use History: No - Recreational Drug Use Recreational Drug Use: No - Living Situation & Occupation Living situation: Reports: Single Occupation: Retired (lives at [facility], daughter and son-inlaw check on her ; daughter has MS) H&P Review of Systems - Review of Systems: Review Of Systems: See Below General: Reports: No Symptoms HEENT: Reports: No Symptoms Pulmonary: Reports: Shortness of Breath Cardiovascular: Reports: No Symptoms Gastrointestinal: Reports: Other (had diarrhe awhich has resolved) Genitourinary: Reports: Frequency, Other (no burning) Musculoskeletal: Reports: No Symptoms Skin: Reports: No Symptoms Psychiatric: Reports: Anxiety Neurological: Reports: No Symptoms Hematologic/Lymphatic: Reports: No Symptoms Exam - Exam Exam: See Below - Vital Signs Vital Signs: Last Vital Signs Temp 97.6 F 11/25/17 16:57 Pulse 86 11/25/17 18:30 Resp 16 11/25/17 18:30 BP 199/89 H 11/25/17 18:41 Pulse Ox 94 L 11/25/17 18:30 Weight: 130 lb - Exam Quality Assessment: Supplemental Oxygen General: Alert HEENT: Conjunctiva Clear, Mucosa Moist & Dotsero Neck: Supple, +2 Carotid Pulse wo Bruit Lungs: Other (rales 1/3 bilaterally) Cardiovascular: Irregular Rhythm, Systolic Murmur GI/Abdominal Exam: Normal Bowel Sounds, Soft, Non-Tender Back Exam: Normal Inspection Extremities: Pedal Edema (1+ edema) Neurological: Cranial Nerves Intact, Normal Speech Neuro Extensive - Mental Status: Alert, Oriented x3, Normal Mood/Affect - Patient Data Lab Results Last 24 hrs: Laboratory Results - last 24 hr 11/25/17 11/25/17 11/25/17 Range/Units 17:40 17:45 17:45 WBC 6.5 (4.0-10.0) x10^3/uL RBC 3.96 L (4.00-5.50) x10^6/uL Hgb 12.6 (12.0-16.0) g/dL Hct 39.6 (33.0-47.0) % MCV 100.0 H (78.0-93.0) fL MCH 31.8 (26.0-32.0) pg MCHC 31.8 L (32.0-36.0) g/dL RDW Coeff of Neha 15.2 H (10.0-15.0) % Plt Count 217 (130-400) x10^3/uL Neut % (Auto) 76.2 (50.0-80.0) % Lymph % (Auto) 10.8 L (25.0-50.0) % Tift % (Auto) 9.1 (2.0-11.0) % Eos % (Auto) 3.6 (0.0-4.0) % Baso % (Auto) 0.3 (0.2-1.2) % Sodium 145 (136-145) mmol/L Potassium 3.7 (3.5-5.1) mmol/L Chloride 108 H (98-107) mmol/L Carbon Dioxide 30 (21-32) mmol/L Anion Gap 10.7 (10-20) mmol/L BUN 16 (7-18) mg/dL Creatinine 1.1 H (0.55-1.02) mg/dL Est Cr Clr Drug Dosing 26.16 mL/min Estimated GFR (MDRD) 47 Glucose 112 H (74-106) mg/dL Calcium 9.5 (8.5-10.1) mg/dL Corrected Calcium 10.06 (8.5-10.1) mg/dL Total Bilirubin 1.3 H (0.2-1.0) mg/dL AST 23 (15-37) U/L ALT 26 (14-59) U/L Alkaline Phosphatase 92 (46-116) U/L Troponin I < 0.017 (<=0.056) ng/mL NT-Pro-B Natriuret Pep 6734 H (<=450) pg/mL Total Protein 7.4 (6.4-8.2) g/dL Albumin 3.3 L (3.4-5.0) g/dL Globulin 4.1 Albumin/Globulin Ratio 0.80 Urine Color Yellow (YELLOW) Urine Appearance Slightly cloudy H (CLEAR) Urine pH 6.0 (5.0-8.0) Ur Specific [place] 1.020 Urine Protein >=300 H (NEGATIVE) mg/dL Urine Glucose (UA) Negative (NEGATIVE) mg/dL Urine Ketones Negative (NEGATIVE) mg/dL Urine Occult Blood Small H (NEGATIVE) Urine Nitrite Negative (NEGATIVE) Urine Bilirubin Negative (NEGATIVE) Urine Urobilinogen 0.2 (0.2) EU/dL Ur Leukocyte Esterase Negative (NEGATIVE) Urine RBC 5-10 H (NOT SEEN) /HPF Urine WBC 0-5 (NOT SEEN) /HPF Ur Squamous Epith Cells Moderate H (NEGATIVE) /HPF Urine Bacteria Few H (NEGATIVE) /HPF Hyaline Casts Few H (NEGATIVE) /HPF Urine Mucus Few H (NEGATIVE) /LPF Urine Yeast (Budding) Occasional Result Diagrams: 11/25/17 17:45 11/25/17 17:45 EKG INTERPRETATION EKG Date: 11/25/17 Rhythm: A-Fib EKG Interpretation Comments: aifb, rate karol [address] [place] I,II; T wave inversion avL V@ through V6- likely unchanged from previous EKF - Problem List (1) Congestive heart failure SNOMED Code(s): 46618506 ICD Code: I50.9 - HEART FAILURE, UNSPECIFIED Status: Acute Current Visit : Yes Problem Details: Will give additional lasix IV Qualifiers: Heart failure type: diastolic Heart failure chronicity: acute on chronic Qualified Code(s): I50.33 - Acute on chronic diastolic (congestive) heart failure (2) Hypertensive CHF SNOMED Code(s): 7659267 ICD Code: I11.0 - HYPERTENSIVE HEART DISEASE WITH HEART FAILURE Status: Acute Priority: High Current Visit: No Qualifiers: Heart failure type: diastolic Heart failure chronicity: acute on chronic Qualified Code(s): I11.0 - Hypertensive heart disease with heart failure; I50.33 - Acute on chronic diastolic (congestive) heart failure (3) Hypertensive urgency SNOMED Code(s): 832179055 ICD Code: I16.0 - HYPERTENSIVE URGENCY Status: Acute Priority: High Current Visit: No Problem Details: will continue present oral medication and bring Sysloic BP down with cloinicinde as needed. I suspect much of her hypertension is related to anxiety andn as this improves, her BP will also improve. Unclear if she will need additional adjustment of BP meds appointment manager.Pt has a hx of bradycardic arrest so meds that can slow heart rate will be avoided for now (4) Afib, Atrial fibrillation SNOMED Code(s): 45945743 ICD Code: I48.91 - UNSPECIFIED ATRIAL FIBRILLATION Status: Chronic Current Visit: No Problem Details: patient with Afib. Patient's heart rate is controlled at this time. anticoaged appropriately. Continue meds. (5) Anxiety SNOMED Code(s): 52600427 ICD Code: F41.9 - ANXIETY DISORDER, UNSPECIFIED Status: Chronic Priority : Low Current Visit: No Problem Details: trial of buspar , start in AM Problem List Initiated/Reviewed/Updated: Yes Orders Last 24hrs: Active Orders 24 hr Category Date Time Status Admission Status [Patient Status] [ADT] Routine ADT 11/25/17 18:33 Active EKG Documentation Completion [RC] STAT Care 11/25/17 17:06 Active Abdomen 2V AP Flat Upright [CR] Stat Exams 11/25/17 17:23 Taken Chest 2V [CR] Stat Exams 11/25/17 17:07 Taken Sodium Chloride 0.9% [Saline Flush] Med 11/25/17 17:06 Active 10 ml FLUSH ASDIRECTED PRN Peripheral IV Insertion Adult [OM.PC] Stat Oth 11/25/17 17:06 Ordered Medication Orders Sodium Chloride (Saline Flush) 10 ml FLUSH ASDIRECTED PRN PRN Reason: Keep Vein Open Last Admin: 11/25/17 18:06 Dose: 10 ml
[2017-11-25] MEDS ORDERED: Acetaminophen 325 MG Tab PO PRN (20:31)
[2017-11-25] MEDS ORDERED: Diclofenac Sodium 1% Gel 100 GM Tube TOP PRN (20:31)
[2017-11-25] MEDS ORDERED: Nitroglycerin 0.4 MG Tab.SL SL PRN (20:31)
[2017-11-25] MEDS ORDERED: cloNIDine 0.1 MG Tab PO PRN (20:31)
[2017-11-25] MEDS ORDERED: Metoclopramide 10 MG Tab PO SCH (20:45)
[2017-11-25] MEDS ORDERED: Brimonidine 0.2% Ophth Soln 5 ML Bottle EYEBOTH SCH (20:45)
[2017-11-25] MEDS: Formoterol/Mometasone 200-5 MCG 8.8 GM Inhaler IH SCH (21:38)
[2017-11-25] MEDS: Albuterol 8 GM Inhaler INH PRN (21:38)
[2017-11-25] MEDS: Dextran 70/Hypromellose/PF Ophth Soln 0.9 ML UD EYEBOTH PRN (21:42)
[2017-11-25] MEDS: Timolol Maleate 0.5% Ophth Soln 5 ML Bottle EYEBOTH SCH (21:42)
[2017-11-25] MEDS: Brimonidine 0.2% Ophth Soln 5 ML Bottle EYEBOTH SCH (21:43)
[2017-11-25] MEDS: Mirtazapine 15 MG Tab PO SCH (22:46)
[2017-11-25] MEDS: Gabapentin 300 MG Cap PO SCH (22:46)
[2017-11-25] MEDS: Metoclopramide 10 MG Tab PO SCH (22:48)
[2017-11-25] MEDS: Albuterol 0.083% 2.5 MG/3 ML Neb Soln NEB PRN (23:01)
[2017-11-25] MEDS: Latanoprost 0.005% Ophth Soln 2.5 ML Bottle EYEBOTH SCH (23:43)
[2017-11-26] MEDS: Metoclopramide 10 MG Tab PO SCH ×3 (06:42→21:30)
[2017-11-26] MEDS: Albuterol 0.083% 2.5 MG/3 ML Neb Soln NEB PRN (07:07)
[2017-11-26] MEDS: Ipratropium 0.02% 0.5 MG/2.5 ML Neb Soln NEB SCH ×3 (07:07→18:34)
[2017-11-26] MEDS ORDERED: VITAMIN B COMPLEX PO SCH (08:00)
[2017-11-26] MEDS ORDERED: DORZOLAMIDE EYERT SCH (08:00)
[2017-11-26] MEDS ORDERED: Lisinopril 20 MG Tab PO SCH (08:00)
[2017-11-26] MEDS ORDERED: Non-Formulary Medication 1 Each (Cyanocobalamin/Fa/Pyridoxine [B Complex-Folic Acid] 1 EAC PO SCH (08:00)
[2017-11-26] MEDS ORDERED: Magnesium Oxide 400 MG Tab PO SCH (08:00)
[2017-11-26 08:07] LABS: ANION GAP 10.2 mmol/L (10-20)
[2017-11-26] MEDS: Furosemide 20 MG/2 ML VIAL IV SCH ×3 (08:29→20:42)
[2017-11-26] MEDS: Isosorbide Mononitrate 30 MG Tab.ER PO SCH (08:30)
[2017-11-26] MEDS: Beta-Carotene (Vitamin A) w/Vitamin C & E plus Minerals Tab PO SCH (08:30)
[2017-11-26] MEDS: Gabapentin 300 MG Cap PO SCH ×2 (08:30→20:28)
[2017-11-26] MEDS: Folic Acid 1 MG Tab PO SCH (08:30)
[2017-11-26] MEDS: Carvedilol 3.125 MG Tab PO SCH ×2 (08:30→17:57)
[2017-11-26] MEDS: Formoterol/Mometasone 200-5 MCG 8.8 GM Inhaler IH SCH ×2 (08:31→20:35)
[2017-11-26] MEDS: Brimonidine 0.2% Ophth Soln 5 ML Bottle EYEBOTH SCH ×2 (08:31→20:33)
[2017-11-26] MEDS: Sodium Chloride 0.9% 10 ML Syringe FLUSH PRN ×2 (08:32→11:27)
[2017-11-26] MEDS: Timolol Maleate 0.5% Ophth Soln 5 ML Bottle EYEBOTH SCH ×2 (08:32→20:33)
[2017-11-26] MEDS: Hydrocortisone 2.5% Crm 30 GM Tube TOP SCH ×3 (08:39→20:34)
[2017-11-26] MEDS ORDERED: Potassium Chloride 20 MEQ Tab.ER PO ONE (09:58)
--- NOTE | 2017-11-26 11:07 | PCM.PN ---
- General Info Date of Service: 11/26/17 Admission Dx/Problem (Free Text): 1.CHF: pt still feels SOB. She has been urinating frequently fro, lasix 2. HTN: BP was in the 140-150 range all last night, did not require any clonidine,. This AM after lisinipril, coreg, imdur, BP went to 85 while she was sleeping - Patient Data Vitals - Most Recent: Last Vital Signs Temp 97.5 F 11/26/17 10:00 Pulse 56 L 11/26/17 10:00 Resp 16 11/26/17 10:00 BP 99/34 L 11/26/17 10:00 Pulse Ox 95 11/26/17 10:00 Weight - Most Recent: 130 lb 14.4 oz I&O - Last 24 Hours: Intake & Output 11/25/17 11/26/17 11/26/17 22:59 06:59 14:59 Intake Total 1340 240 240 Output Total 700 550 Balance 640 -310 240 Lab Results Last 24 Hours: Laboratory Results - last 24 hr 11/25/17 11/25/17 11/25/17 Range/Units 17:40 17:45 17:45 WBC 6.5 (4.0-10.0) x10^3/uL RBC 3.96 L (4.00-5.50) x10^6/uL Hgb 12.6 (12.0-16.0) g/dL Hct 39.6 (33.0-47.0) % MCV 100.0 H (78.0-93.0) fL MCH 31.8 (26.0-32.0) pg MCHC 31.8 L (32.0-36.0) g/dL RDW Coeff of Neha 15.2 H (10.0-15.0) % Plt Count 217 (130-400) x10^3/uL Neut % (Auto) 76.2 (50.0-80.0) % Lymph % (Auto) 10.8 L (25.0-50.0) % [place] % (Auto) 9.1 (2.0-11.0) % Eos % (Auto) 3.6 (0.0-4.0) % Baso % (Auto) 0.3 (0.2-1.2) % PT (9.6-11.4) SEC INR (2.0-3.5) Sodium 145 (136-145) mmol/L Potassium 3.7 (3.5-5.1) mmol/L Chloride 108 H (98-107) mmol/L Carbon Dioxide 30 (21-32) mmol/L Anion Gap 10.7 (10-20) mmol/L BUN 16 (7-18) mg/dL Creatinine 1.1 H (0.55-1.02) mg/dL Est Cr Clr Drug Dosing 26.16 mL/min Estimated GFR (MDRD) 47 Glucose 112 H (74-106) mg/dL Calcium 9.5 (8.5-10.1) mg/dL Corrected Calcium 10.06 (8.5-10.1) mg/dL Magnesium (1.8-2.4) mg/dL Total Bilirubin 1.3 H (0.2-1.0) mg/dL AST 23 (15-37) U/L ALT 26 (14-59) U/L Alkaline Phosphatase 92 (46-116) U/L Troponin I < 0.017 (<=0.056) ng/mL NT-Pro-B Natriuret Pep 6734 H (<=450) pg/mL Total Protein 7.4 (6.4-8.2) g/dL Albumin 3.3 L (3.4-5.0) g/dL Globulin 4.1 Albumin/Globulin Ratio 0.80 Urine Color Yellow (YELLOW) Urine Appearance Slightly cloudy H (CLEAR) Urine pH 6.0 (5.0-8.0) Ur Specific [place] 1.020 Urine Protein >=300 H (NEGATIVE) mg/dL Urine Glucose (UA) Negative (NEGATIVE) mg/dL Urine Ketones Negative (NEGATIVE) mg/dL Urine Occult Blood Small H (NEGATIVE) Urine Nitrite Negative (NEGATIVE) Urine Bilirubin Negative (NEGATIVE) Urine Urobilinogen 0.2 (0.2) EU/dL Ur Leukocyte Esterase Negative (NEGATIVE) Urine RBC 5-10 H (NOT SEEN) /HPF Urine WBC 0-5 (NOT SEEN) /HPF Ur Squamous Epith Cells Moderate H (NEGATIVE) /HPF Urine Bacteria Few H (NEGATIVE) /HPF Hyaline Casts Few H (NEGATIVE) /HPF Urine Mucus Few H (NEGATIVE) /LPF Urine Yeast (Budding) Occasional 11/26/17 11/26/17 Range/Units 07:22 07:22 WBC (4.0-10.0) x10^3/uL RBC (4.00-5.50) x10^6/uL Hgb (12.0-16.0) g/dL Hct (33.0-47.0) % MCV (78.0-93.0) fL MCH (26.0-32.0) pg MCHC (32.0-36.0) g/dL RDW Coeff of Neha (10.0-15.0) % Plt Count (130-400) x10^3/uL Neut % (Auto) (50.0-80.0) % Lymph % (Auto) (25.0-50.0) % [place] % (Auto) (2.0-11.0) % Eos % (Auto) (0.0-4.0) % Baso % (Auto) (0.2-1.2) % PT 22.0 H (9.6-11.4) SEC INR 2.1 (2.0-3.5) Sodium 147 H (136-145) mmol/L Potassium 3.2 L (3.5-5.1) mmol/L Chloride 109 H (98-107) mmol/L Carbon Dioxide 31 (21-32) mmol/L Anion Gap 10.2 (10-20) mmol/L BUN 18 (7-18) mg/dL Creatinine 1.2 H (0.55-1.02) mg/dL Est Cr Clr Drug Dosing 23.98 mL/min Estimated GFR (MDRD) 42 Glucose 92 (74-106) mg/dL Calcium 8.8 (8.5-10.1) mg/dL Corrected Calcium (8.5-10.1) mg/dL Magnesium 1.6 L (1.8-2.4) mg/dL Total Bilirubin (0.2-1.0) mg/dL AST (15-37) U/L ALT (14-59) U/L Alkaline Phosphatase (46-116) U/L Troponin I (<=0.056) ng/mL NT-Pro-B Natriuret Pep (<=450) pg/mL Total Protein (6.4-8.2) g/dL Albumin (3.4-5.0) g/dL Globulin Albumin/Globulin Ratio Urine Color (YELLOW) Urine Appearance (CLEAR) Urine pH (5.0-8.0) Ur Specific [place] Urine Protein (NEGATIVE) mg/dL Urine Glucose (UA) (NEGATIVE) mg/dL Urine Ketones (NEGATIVE) mg/dL Urine Occult Blood (NEGATIVE) Urine Nitrite (NEGATIVE) Urine Bilirubin (NEGATIVE) Urine Urobilinogen (0.2) EU/dL Ur Leukocyte Esterase (NEGATIVE) Urine RBC (NOT SEEN) /HPF Urine WBC (NOT SEEN) /HPF Ur Squamous Epith Cells (NEGATIVE) /HPF Urine Bacteria (NEGATIVE) /HPF Hyaline Casts (NEGATIVE) /HPF Urine Mucus (NEGATIVE) /LPF Urine Yeast (Budding) Med Orders - Current: Current Medications Acetaminophen (Tylenol) 650 mg PO Q4HR PRN PRN Reason: Pain Albuterol (Ventolin Hfa) 0 gm INH Q4HR PRN PRN Reason: Shortness of Breath Last Admin: 11/25/17 21:38 Dose: 1 puff Albuterol (Proventil Neb Soln) 2.5 mg NEB Q4HRRT PRN PRN Reason: Shortness of Breath Last Admin: 11/26/17 07:07 Dose: 2.5 mg Artificial Tears (Tears Naturale Free) 1 - 2 each EYEBOTH TID PRN PRN Reason: Dry Eyes Last Admin: 11/25/17 21:42 Dose: 1 each Brimonidine Tartrate (Alphagan 0.2% Ophth Soln) 0 ml EYEBOTH BID [facility] Last Admin: 11/26/17 08:31 Dose: 1 drop Buspirone HCl (Buspar) 5 mg PO TID [facility] Carvedilol (Coreg) 6.25 mg PO BIDM [facility] Last Admin: 11/26/17 08:30 Dose: 6.25 mg Diclofenac Sodium (Voltaren 1% Gel) 2 gm TOP QID PRN PRN Reason: HAND PAIN Folic Acid (Folic Acid) 1 mg PO DAILY [facility] Last Admin: 11/26/17 08:30 Dose: 1 mg Furosemide (Lasix) 20 mg IV TID [facility] Last Admin: 11/26/17 08:29 Dose: 20 mg Gabapentin (Neurontin) 300 mg PO DAILY [facility] Last Admin: 11/26/17 08:30 Dose: 300 mg Gabapentin (Neurontin) 600 mg PO BEDTIME [facility] Last Admin: 11/25/17 22:46 Dose: 600 mg Hydrocortisone (Hydrocortisone 2.5% Crm) 1 gm TOP TID [facility] Last Admin: 11/26/17 08:39 Dose: Not Given Ipratropium [place] (Atrovent) 0.5 mg NEB Q6HRRT [facility] Last Admin: 11/26/17 07:07 Dose: 0.5 mg Isosorbide Mononitrate (Imdur) 120 mg PO DAILY [facility] Last Admin: 11/26/17 08:30 Dose: 120 mg Latanoprost (Xalatan 0.005% Ophth Soln) 0 ml EYEBOTH BEDTIME [facility] Last Admin: 11/25/17 23:43 Dose: 1 drop Lisinopril (Prinivil) 60 mg PO DAILY [facility] Last Admin: 11/26/17 08:30 Dose: 60 mg Magnesium Oxide (Magnesium Oxide) 400 mg PO BID [facility] Metoclopramide HCl (Reglan) 10 mg PO Q8H [facility] Last Admin: 11/26/17 06:42 Dose: 10 mg Mirtazapine (Remeron) 15 mg PO BEDTIME [facility] Last Admin: 11/25/17 22:46 Dose: 15 mg Mometasone Furoate/Formoterol Fumar (Dulera 200-5 Mcg) 2 puff IH BID [facility] Last Admin: 11/26/17 08:31 Dose: 2 puff Multivitamins/Minerals (Prosight) 1 tab PO DAILY [facility] Last Admin: 11/26/17 08:30 Dose: 1 tab Nitroglycerin (Nitrostat) 0.4 mg SL ASDIRECTED PRN PRN Reason: Chest Pain Sodium Chloride (Saline Flush) 10 ml FLUSH ASDIRECTED PRN PRN Reason: Keep Vein Open Last Admin: 11/26/17 08:32 Dose: 10 ml Timolol Maleate (Timoptic 0.5% Ophth Soln) 0 ml EYEBOTH BID [facility] Last Admin: 11/26/17 08:32 Dose: 1 drop Warfarin Sodium (Coumadin) 2.5 mg PO SUTUWETHFRSA@20 [facility] Discontinued Medications Brimonidine Tartrate (Alphagan 0.2% Ophth Soln) 0 ml EYEBOTH Q12H [facility] Last Admin: 11/25/17 22:47 Dose: Not Given Clonidine HCl (Catapres) 0.1 mg PO ONETIME ONE Stop: 11/25/17 18:33 Last Admin: 11/25/17 18:41 Dose: 0.1 mg Clonidine HCl (Catapres) 0.1 mg PO Q6HR PRN PRN Reason: Hypertension Furosemide (Lasix) 20 mg IV ONETIME ONE Stop: 11/25/17 17:27 Last Admin: 11/25/17 18:06 Dose: 20 mg Magnesium Oxide (Magnesium Oxide) 400 mg PO DAILY [facility] Last Admin: 11/26/17 08:31 Dose: 400 mg Metoclopramide HCl (Reglan) 10 mg PO Q8H [facility] Last Admin: 11/25/17 21:42 Dose: 10 mg Non-Formulary Medication (Cyanocobalamin/Fa/Pyridoxine [B Complex-Folic Acid]) 1 each PO DAILY [facility] Last Admin: 11/26/17 09:06 Dose: Not Given Non-Formulary Medication (Dorzolamide [Trusopt 2% Ophth Soln]) 1 drop EYERT TID [facility] Last Admin: 11/26/17 09:06 Dose: Not Given Non-Formulary Medication (Vitamin B Complex [Balanced B-50]) 1 each PO DAILY [facility] Last Admin: 11/26/17 09:06 Dose: Not Given Potassium Chloride (Klor-Con M20) 20 meq PO ONETIME ONE Stop: 11/26/17 09:59 - Exam General: Alert Lungs: Rales (1/3 dasia) Cardiovascular: Murmurs (2/6 systolic) - Problem List & Annotations (1) Congestive heart failure SNOMED Code(s): 40737604 Code(s): I50.9 - HEART FAILURE, UNSPECIFIED Status: Acute Current Visit: Yes Qualifiers: Heart failure type: diastolic Heart failure chronicity: acute on chronic Qualified Code(s): I50.33 - Acute on chronic diastolic (congestive) heart failure Annotation/Comment:: Still in CHF, will give small pushes of lasix as BP allows, replace K and MG (2) Hypertensive CHF SNOMED Code(s): 8838352 Code(s): I11.0 - HYPERTENSIVE HEART DISEASE WITH HEART FAILURE Status: Acute Priority: High Current Visit: No Qualifiers: Heart failure type: diastolic Heart failure chronicity: acute on chronic Qualified Code(s): I11.0 - Hypertensive heart disease with heart failure; I50.33 - Acute on chronic diastolic (congestive) heart failure (3) Hypertensive urgency SNOMED Code(s): 725324986 Code(s): I16.0 - HYPERTENSIVE URGENCY Status: Acute Priority: High Current Visit: No Annotation/Comment:: BP is labile, will split dose of lisinopril starting in AM, keep pt in bed until PB comes up (4) Afib, Atrial fibrillation SNOMED Code(s): 94582886 Code(s): I48.91 - UNSPECIFIED ATRIAL FIBRILLATION Status: Chronic Current Visit: No Annotation/Comment:: patient with Afib. Patient's heart rate is controlled at this time. anticoaged appropriately. Continue meds. (5) Anxiety SNOMED Code(s): 91360304 Code(s): F41.9 - ANXIETY DISORDER, UNSPECIFIED Status: Chronic Priority: Low Current Visit: No Annotation/Comment:: trial of buspar , start in AM (6) Atelectasis of both lungs SNOMED Code(s): 65443134 Code(s): J98.11 - ATELECTASIS Status: Acute Current Visit: No - Problem List Review Problem List Initiated/Reviewed/Updated: Yes - My Orders Last 24 Hours: My Active Orders 11/25/17 20:08 Patient Status [ADT] Routine Oxygen Therapy [RC] 08,20 Vital Signs [RC] Q1H Resuscitation Status Routine 11/25/17 20:11 Cardiac Monitoring [RC] 06,10,14,18,22,02 11/25/17 20:31 Acetaminophen [Tylenol] 650 mg PO Q4HR PRN Albuterol [Ventolin HFA] 0 gm INH Q4HR PRN Dextran 70/Hypromellose/PF [Tears Naturale Free] 1 - 2 each EYEBOTH TID PRN Diclofenac Sodium [Voltaren 1% Gel] 2 gm TOP QID PRN Nitroglycerin [Nitrostat] 0.4 mg SL ASDIRECTED PRN 11/25/17 20:51 Blood Pressure [OM.PC] Routine 11/25/17 21:00 Brimonidine [Alphagan 0.2% Ophth Soln] 0 ml EYEBOTH BID Timolol Maleate [Timoptic 0.5% Ophth Soln] 0 ml EYEBOTH BID 11/25/17 21:13 Weight, Daily [Height and Weight] [RC] DAILY 11/25/17 21:30 Mometasone/Formoterol [Dulera 200-5 MCG] 2 puff IH BID 11/25/17 21:55 Albuterol [Proventil Neb Soln] 2.5 mg NEB Q4HRRT PRN 11/25/17 21:56 RT Aerosol Therapy [RC] .PRN 11/25/17 22:00 Gabapentin [Neurontin] 600 mg PO BEDTIME Latanoprost [Xalatan 0.005% Ophth Soln] 0 ml EYEBOTH BEDTIME Metoclopramide [Reglan] 10 mg PO Q8H Mirtazapine [Remeron] 15 mg PO BEDTIME 11/26/17 07:00 Ipratropium [Atrovent] 0.5 mg NEB Q6HRRT ISA Hose [Antiembolic Hose] [OM.PC] Routine 11/26/17 08:00 Beta-Carotene(A) w/C & E/Min [Prosight] 1 tab PO DAILY Carvedilol [Coreg] 6.25 mg PO BIDM Folic Acid 1 mg PO DAILY Furosemide [Lasix] 20 mg IV TID Gabapentin [Neurontin] 300 mg PO DAILY Hydrocortisone [Hydrocortisone 2.5% Crm] 1 gm TOP TID Isosorbide Mononitrate [Imdur] 120 mg PO DAILY Lisinopril [Prinivil] 60 mg PO DAILY 11/26/17 12:00 busPIRone [Buspar] 5 mg PO TID 11/26/17 20:00 Magnesium Oxide 400 mg PO BID Warfarin [Coumadin] 2.5 mg PO SUTUWETHFRSA@20 11/26/17 Breakfast 2 Gram Sodium Diet [DIET]
[2017-11-26] MEDS: busPIRone 5 MG Tab PO SCH ×2 (11:27→20:28)
[2017-11-26] MEDS: Warfarin 2.5 MG Tab PO SCH (20:28)
[2017-11-26] MEDS: Magnesium Oxide 400 MG Tab PO SCH (20:29)
[2017-11-26] MEDS: Latanoprost 0.005% Ophth Soln 2.5 ML Bottle EYEBOTH SCH (20:31)
[2017-11-26] MEDS: Albuterol 8 GM Inhaler INH PRN (20:36)
[2017-11-26] MEDS: Mirtazapine 15 MG Tab PO SCH (20:40)
[2017-11-27] MEDS: Ipratropium 0.02% 0.5 MG/2.5 ML Neb Soln NEB SCH ×4 (01:01→18:40)
[2017-11-27] MEDS: Metoclopramide 10 MG Tab PO SCH ×3 (06:12→21:55)
[2017-11-27] MEDS: Beta-Carotene (Vitamin A) w/Vitamin C & E plus Minerals Tab PO SCH (07:32)
[2017-11-27] MEDS: Folic Acid 1 MG Tab PO SCH (07:32)
[2017-11-27] MEDS: Carvedilol 3.125 MG Tab PO SCH ×2 (07:32→17:39)
[2017-11-27] MEDS: Furosemide 20 MG/2 ML VIAL IV SCH ×2 (07:32→15:17)
[2017-11-27] MEDS: Isosorbide Mononitrate 30 MG Tab.ER PO SCH (07:32)
[2017-11-27] MEDS: Gabapentin 300 MG Cap PO SCH ×2 (07:32→19:36)
[2017-11-27] MEDS: Sodium Chloride 0.9% 10 ML Syringe FLUSH PRN ×2 (07:32→21:55)
[2017-11-27] MEDS: busPIRone 5 MG Tab PO SCH ×3 (07:32→19:35)
[2017-11-27] MEDS: Magnesium Oxide 400 MG Tab PO SCH ×2 (07:32→19:36)
[2017-11-27] MEDS: Formoterol/Mometasone 200-5 MCG 8.8 GM Inhaler IH SCH ×2 (07:33→19:36)
[2017-11-27] MEDS: Brimonidine 0.2% Ophth Soln 5 ML Bottle EYEBOTH SCH ×2 (07:34→19:38)
[2017-11-27] MEDS: Hydrocortisone 2.5% Crm 30 GM Tube TOP SCH ×3 (07:35→19:34)
[2017-11-27] MEDS: Timolol Maleate 0.5% Ophth Soln 5 ML Bottle EYEBOTH SCH ×2 (07:39→19:40)
[2017-11-27 09:16] LABS: CHLORIDE,CL 109 mmol/L (98-107); SODIUM,NA 146 mmol/L (136-145)
--- NOTE | 2017-11-27 09:24 | PN ---
Progress Note for CONNOR SPEARS Date: 11/27/2017 Room #: VM.202 SUBJECTIVE: This is hospital day #3 on an 87-year-old admitted with hypertensive urgency and a CHF exacerbation. It is possible that she had missed some of her pills. She has a longstanding history of poor compliance with medication, but has recently been followed very closely by her family to make sure she was taking her pills. Specifically, she has been on Coreg, however, in the hospital on telemetry rates have been as low as 34 with 2 second pauses. She has not felt lightheaded or dizzy. She has no shortness of breath today, but did have some yesterday. No cough. No chest pain. No fever. No chills. It was noted that she was more anxious, so she was started on some BuSpar yesterday. She has a longstanding history of dysthymia and depression and does follow with Psychiatry. She has been on Remeron. Actually after she got all of her home medications, her blood pressure went low like into the 80s, so some adjustments were made. She has been on Lasix 20 mg IV t.i.d. Home Lasix had recently been decreased due to renal insufficiency. Her fluid balance is about the same. She actually has not lost any weight since she has been here. OBJECTIVE: Vital Signs: Her temperature is 97.5, her weight 59.4 kg, pulse 64, blood pressure 113/46, respiratory rate 19, and O2 of 92% on 2 L but previously recorded 97% on 2 L. It was noted actually the nasal prongs were not in her nose when we examined her, so probably the 92% was on room air. General: She was in no acute distress. HEART: Irregularly irregular with murmur. Lungs: Sounds are decreased with some crackles in the bases. Abdomen: Nondistended. Extremities: Warm and dry. No edema. Mental Status: Alert and orientated x3. LABORATORY DATA: Lab work is pending now. ASSESSMENT AND PLAN: 1. Acute on chronic diastolic heart failure exacerbation. Known EF of 50 % 2. Hypokalemia from diuresis. 3. Hypomagnesemia. 4. Essential hypertension. 5. Atrial flutter, chronic with bradycardia, on Coreg. 6. Severe pulmonary hypertension. 7. Some stomach upset. The patient describes as feeling like she needs to have a BM. She has had some ER visits for constipation recently. We will just continue to monitor this. 8. Microscopic hematuria with recurrent UTIs recently. We will likely have her see Urology outpatient. She has already had an abdominal CT. PLAN: At this point, the patient will continue acute cares. We will decrease her IV Lasix from 20 t.i.d. to b.i.d. We will replace potassium and check labs. We will have therapies and the social science instructor see her to see if she would be a candidate for swing bed or alf stay. We will continue to wean oxygen. We will continue telemetry due to the bradycardia. MKA: 11/27/2017 08:55:32 MODL: 11/27/2017 09:15:51 /[id number] MTDMali
[2017-11-27] MEDS: Potassium Chloride 20 MEQ Tab.ER PO SCH ×3 (09:40→17:39)
[2017-11-27] MEDS: Mirtazapine 15 MG Tab PO SCH (19:34)
[2017-11-27] MEDS: Latanoprost 0.005% Ophth Soln 2.5 ML Bottle EYEBOTH SCH (19:40)
[2017-11-27] MEDS: Lisinopril 10 MG Tab PO SCH (20:13)
[2017-11-28] MEDS: Ipratropium 0.02% 0.5 MG/2.5 ML Neb Soln NEB SCH ×4 (01:31→18:15)
[2017-11-28] MEDS: Metoclopramide 10 MG Tab PO SCH ×3 (06:38→21:39)
[2017-11-28] MEDS: Potassium Chloride 20 MEQ Tab.ER PO SCH ×2 (07:56→18:14)
[2017-11-28] MEDS: Gabapentin 300 MG Cap PO SCH ×2 (07:56→20:01)
[2017-11-28] MEDS: busPIRone 5 MG Tab PO SCH ×3 (07:56→19:58)
[2017-11-28] MEDS: Folic Acid 1 MG Tab PO SCH (07:57)
[2017-11-28] MEDS: Carvedilol 3.125 MG Tab PO SCH ×2 (07:57→18:13)
[2017-11-28] MEDS: Isosorbide Mononitrate 30 MG Tab.ER PO SCH (07:59)
[2017-11-28] MEDS: Lisinopril 10 MG Tab PO SCH ×2 (07:59→20:01)
[2017-11-28] MEDS: Furosemide 20 MG/2 ML VIAL IV SCH ×2 (08:00→15:56)
[2017-11-28] MEDS: Magnesium Oxide 400 MG Tab PO SCH ×2 (08:02→20:02)
[2017-11-28] MEDS: Formoterol/Mometasone 200-5 MCG 8.8 GM Inhaler IH SCH ×2 (08:08→20:04)
[2017-11-28] MEDS: Hydrocortisone 2.5% Crm 30 GM Tube TOP SCH ×3 (08:08→20:05)
[2017-11-28] MEDS: Brimonidine 0.2% Ophth Soln 5 ML Bottle EYEBOTH SCH ×2 (08:09→19:57)
[2017-11-28] MEDS: Timolol Maleate 0.5% Ophth Soln 5 ML Bottle EYEBOTH SCH ×2 (08:10→20:03)
[2017-11-28] MEDS: Beta-Carotene (Vitamin A) w/Vitamin C & E plus Minerals Tab PO SCH (08:13)
--- NOTE | 2017-11-28 11:19 | PN ---
Progress Note for CONNOR SPEARS Date: 11/28/2017 Room #: VM.202 SUBJECTIVE: This is hospital day #4 on an 87-year-old admitted with acute on chronic diastolic heart failure exacerbation. She was feeling better yesterday, but overnight, she had more orthopnea and short of breath. She is not having any chest pain. She is having a little bit of a cough. No fever. No chills. She has been on IV Lasix. Blood pressure is great. However, her weight has not improved. She has been having a lot an intake, over 2 L of fluid. Lab work was reviewed from yesterday. Her sodium is 146. Her creatinine went up from 1.2 to 1.4. We had decreased Lasix from 20 t.i.d. to b.i.d. She is on oral at home only 20 daily. INR is therapeutic. 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 She is having a little bit of upset stomach, but no burning with urination. She has had CT scan previously for some stomach problems. OBJECTIVE: Vital Signs: Her temperature is 96.9; pulse is 80; weight 61 kg, which is actually up; blood pressure is 127/46; respiratory rate is 18; and O2 is 94% on room air. General: She is in no acute distress. Heart: Irregularly irregular with murmur. Lungs: Lung sounds are slightly decreased in the bases, but otherwise clear without crackles. Abdomen: Nondistended. Positive bowel sounds and mildly tender in the suprapubic area. Extremities: Warm and dry. There is no edema. Mental Status: She is alert and orientated x3. DIAGNOSTIC DATA: Chest x-ray repeated this morning does show some improvement in bilateral pleural effusions from admission, but still some mild effusions. No lab work today. ASSESSMENT: 1. Acute on chronic diastolic heart failure exacerbation with ejection fraction of 60%. We will continue the IV Lasix 20 b.i.d. We will repeat lab work tomorrow. 2. Hypokalemia, improving. We will continue potassium supplementation. 3. Hypomagnesemia. Continue replacement. 4. Essential hypertension, now under better control due to diuresis. 5. Atrial flutter, rate controlled on Coreg. She has not had any bradycardia or pauses for 24 hours. We will discontinue telemetry. 6. Severe pulmonary hypertension. We will do a home O2 eval today. 7. Mild stomach upset. This has been an ongoing problem, even outpatient. UA was checked on admission and she had 5 to 10 rbc's, so we will not check it again, but we will check a CBC tomorrow. 8. Deep vein thrombosis prophylaxis. She is therapeutic with Coumadin. PLAN: At this point, the patient will continue acute cares. We will continue the IV Lasix twice daily. We will check labs tomorrow. We will make arrangements for likely a short-term intermediate stay. The patient is agreeable to this. She also has moderate malnutrition with albumin 2.6. We will continue to encourage p.o. intake. She is eating mostly over 50% of her meals, even a 100%. MKA: 11/28/2017 10:40:06 MODL: 11/28/2017 11:14:17 /[id number]
[2017-11-28] MEDS: Warfarin 2.5 MG Tab PO SCH (20:02)
[2017-11-28] MEDS: Mirtazapine 15 MG Tab PO SCH (20:02)
[2017-11-28] MEDS: Dextran 70/Hypromellose/PF Ophth Soln 0.9 ML UD EYEBOTH PRN (20:03)
[2017-11-28] MEDS: Latanoprost 0.005% Ophth Soln 2.5 ML Bottle EYEBOTH SCH (20:04)
[2017-11-29] MEDS: Ipratropium 0.02% 0.5 MG/2.5 ML Neb Soln NEB SCH ×4 (00:32→18:02)
[2017-11-29] MEDS: Metoclopramide 10 MG Tab PO SCH ×3 (05:30→22:08)
[2017-11-29 07:22] LABS: ANION GAP 8.7 mmol/L (10-20)
[2017-11-29] MEDS: Carvedilol 3.125 MG Tab PO SCH ×2 (07:36→17:38)
[2017-11-29] MEDS: Isosorbide Mononitrate 30 MG Tab.ER PO SCH (07:36)
[2017-11-29] MEDS: busPIRone 5 MG Tab PO SCH ×3 (07:36→19:19)
[2017-11-29] MEDS: Beta-Carotene (Vitamin A) w/Vitamin C & E plus Minerals Tab PO SCH (07:36)
[2017-11-29] MEDS: Gabapentin 300 MG Cap PO SCH ×2 (07:36→19:18)
[2017-11-29] MEDS: Lisinopril 10 MG Tab PO SCH ×2 (07:37→19:19)
[2017-11-29] MEDS: Magnesium Oxide 400 MG Tab PO SCH ×2 (07:37→19:19)
[2017-11-29] MEDS: Folic Acid 1 MG Tab PO SCH (07:37)
[2017-11-29] MEDS: Potassium Chloride 20 MEQ Tab.ER PO SCH ×2 (07:37→17:39)
[2017-11-29] MEDS: Hydrocortisone 2.5% Crm 30 GM Tube TOP SCH ×3 (07:38→19:16)
[2017-11-29] MEDS: Furosemide 20 MG/2 ML VIAL IV SCH (07:38)
[2017-11-29] MEDS: Formoterol/Mometasone 200-5 MCG 8.8 GM Inhaler IH SCH ×2 (07:39→19:20)
[2017-11-29] MEDS: Brimonidine 0.2% Ophth Soln 5 ML Bottle EYEBOTH SCH ×2 (07:41→19:21)
[2017-11-29] MEDS: Timolol Maleate 0.5% Ophth Soln 5 ML Bottle EYEBOTH SCH ×2 (07:41→19:24)
[2017-11-29] MEDS: Sodium Chloride 0.9% 10 ML Syringe FLUSH PRN ×2 (07:42→19:24)
[2017-11-29] MEDS ORDERED: Furosemide 40 MG/4 ML VIAL IV SCH (08:30)
[2017-11-29] MEDS ORDERED: Enoxaparin 30 MG/0.3 ML Syringe SUBCUT SCH (09:00)
[2017-11-29] MEDS ORDERED: Furosemide 20 MG/2 ML VIAL IV ONE (09:30)
--- NOTE | 2017-11-29 13:34 | PN ---
Progress Note for CONNOR SPEARS Date: 11/29/2017 Room #: VM.202 SUBJECTIVE: An 87-year-old admitted for an acute on chronic diastolic heart failure exacerbation. The patient had a really rough night. She was more short of breath. She did not have any chest pain. She had a chest x-ray yesterday, which showed some improvement in her pleural effusions. She has not had any fever or chills. Her INR is down to 1.6 today, but she did miss her dose on Monday. She otherwise has agreed now that she would like to go to [facility] due to having ambulances come over like 4 times to her apartment. She also has some hoarding issues and depression and just would probably do better if she was around more people. Her family is supportive of her going to the [facility]. She is denying any stomach upset. She is denying any diarrhea. OBJECTIVE: Vital Signs: Her weight went up a little yesterday, down to 58 kg this morning, which is about her admission weight. Her temperature is 97.6, pulse 72, blood pressure elevated 149/76 and 152/63, respiratory rate 20, and O2 98% on 2 L. She did not qualify for oxygen with activity yesterday, but she has to use it at night. General: She is in no acute distress. Heart: Irregularly irregular with murmur. LUNGS: Lung sounds are mostly clear to auscultation bilaterally without crackles or wheezes. Abdomen: Nondistended, nontender. Extremities: Warm and dry. No edema. Mental Status: Alert and orientated x3. LABORATORY DATA: Lab work today shows her white count 5.2, hemoglobin 10.9, platelets 218. INR 1.6. Sodium 145, potassium 4.7, chloride 111, bicarb 30, BUN 25, creatinine 1.2. LFTs normal. Albumin 2.9. ASSESSMENT AND PLAN: 1. Acute on chronic diastolic heart failure exacerbation with elevated blood pressures. Kidney function is stable. I am going to increase her Lasix to 40 mg IV b.i.d. Repeat labs tomorrow. 2. Hypokalemia and hypomagnesemia, resolved. 3. Subtherapeutic INR. We will give her Lovenox just 40 mg subcu today. 4. Essential hypertension. Blood pressure is elevated. We will continue home medications. Hopefully, this will improve with diuresis. 5. Atrial flutter, rate controlled on Coreg. 6. Severe pulmonary hypertension. She is on oxygen at night. Unfortunately, it was not on all of last night, which she attributes somewhat to her feeling not so good today. PLAN: At this point, patient will continue acute cares. We will continue IV Lasix. We will repeat lab work tomorrow. We will give her some Lovenox as well. For her moderate malnutrition, we will encourage p.o. intake and actually her protein levels have improved slightly. MKA: 11/29/2017 12:54:12 MODL: 11/29/2017 13:27:31 /[id number]
[2017-11-29] MEDS: Furosemide 40 MG/4 ML VIAL IV SCH (15:26)
[2017-11-29] MEDS: Mirtazapine 15 MG Tab PO SCH (19:18)
[2017-11-29] MEDS: Warfarin 2.5 MG Tab PO SCH (19:19)
[2017-11-29] MEDS: Latanoprost 0.005% Ophth Soln 2.5 ML Bottle EYEBOTH SCH (19:22)
[2017-11-30] MEDS: Ipratropium 0.02% 0.5 MG/2.5 ML Neb Soln NEB SCH ×2 (00:01→07:02)
[2017-11-30] MEDS: Metoclopramide 10 MG Tab PO SCH (05:02)
[2017-11-30 05:08] VITALS: BP 121/59
[2017-11-30 07:14] LABS: ANION GAP 9.5 mmol/L (10-20)
[2017-11-30] MEDS: Carvedilol 3.125 MG Tab PO SCH (07:40)
[2017-11-30] MEDS: busPIRone 5 MG Tab PO SCH (07:40)
[2017-11-30] MEDS: Potassium Chloride 20 MEQ Tab.ER PO SCH (07:40)
[2017-11-30] MEDS: Magnesium Oxide 400 MG Tab PO SCH (07:40)
[2017-11-30] MEDS: Furosemide 40 MG/4 ML VIAL IV SCH (07:40)
[2017-11-30] MEDS: Folic Acid 1 MG Tab PO SCH (07:40)
[2017-11-30] MEDS: Isosorbide Mononitrate 30 MG Tab.ER PO SCH (07:41)
[2017-11-30] MEDS: Lisinopril 10 MG Tab PO SCH (07:41)
[2017-11-30] MEDS: Formoterol/Mometasone 200-5 MCG 8.8 GM Inhaler IH SCH (07:41)
[2017-11-30] MEDS: Gabapentin 300 MG Cap PO SCH (07:41)
[2017-11-30] MEDS: Hydrocortisone 2.5% Crm 30 GM Tube TOP SCH (07:41)
[2017-11-30] MEDS: Beta-Carotene (Vitamin A) w/Vitamin C & E plus Minerals Tab PO SCH (07:41)
[2017-11-30] MEDS: Brimonidine 0.2% Ophth Soln 5 ML Bottle EYEBOTH SCH (07:42)
[2017-11-30] MEDS: Sodium Chloride 0.9% 10 ML Syringe FLUSH PRN (07:42)
[2017-11-30] MEDS: Timolol Maleate 0.5% Ophth Soln 5 ML Bottle EYEBOTH SCH (07:42)
[2017-11-30] MEDS ORDERED: Enoxaparin 30 MG/0.3 ML Syringe SUBCUT SCH (08:00)
--- NOTE | 2017-12-01 01:54 | DISCH ---
PRIMARY DISCHARGE DIAGNOSES: 1. Acute on chronic diastolic heart failure exacerbation with EF 60%. 2. Hypertensive urgency related to congestive heart failure, improved with diuresis. 3. Hypokalemia and hypomagnesemia, replaced. 4. Severe pulmonary hypertension, on oxygen at night. 5. Subtherapeutic INR, receiving Lovenox. 6. Atrial flutter, chronic, on Coumadin, rate controlled with Coreg. 7. Bradycardia with heart rates down into the mid 30s with up to 2-second pauses. The patient was not overly symptomatic and is on beta-meggan. 8. Longstanding history of dysthymia and depression. 9. CAD with recent NSTEMI with negative troponin on this admit 10. Anxiety REASON FOR ADMISSION: On the date of admission, this 87-year-old presented to the ER by ambulance. Had been about the fourth ambulance trip from her apartment complex. She was found to be in respiratory distress and her blood pressure was elevated to 222/96. She was reinstituted on her medications and her blood pressure dropped below 100 systolic. She denied that she had missed any pills intentionally, but she has a longstanding history of pill noncompliance. Her breathing otherwise gradually improved with diuresis. She was down at least 2.2 L in the last 24 hours and her blood pressure was improved to 121/59 on discharge. She was still feeling short of breath, so chest x-ray was repeated, which showed significant improvement in pleural effusion. She was not coughing. She was not having any chest pain. Leg swelling was improved. She did have bowel movements, 1 of them was light colored, and she has felt her stomach was a little upset on discharge, but she actually felt that was more due to nerves. She was eating 75-100% of her meals. LABORATORY WORK: On discharge, white count normal 5.5, hemoglobin 10.7, platelets 224. INR 1.5. Sodium 147, it had been up to 147, then back down to 145 before. Potassium 4.5, chloride 109, BUN 33, bicarb 33, BUN 30, creatinine 1.4 and had been 1.1-1.4 during her admission. She previously went up on higher creatinine as an outpatient and had been decreased down to 20 mg of Lasix daily, which likely exacerbated this admission. Liver function was normal. UA was done, which did not show any infection, but she had 5-10 wbc's. She had recently had an outpatient CT, which failed to reveal any significant causes for hematuria. She was diuresed with Lasix 20 t.i.d., then down to 20 b.i.d., and finally 40 b.i.d. on her final day. PHYSICAL EXAMINATION: Vital Signs: Discharge vitals include a weight 58.2 kg, temp 97.1, pulse 73, blood pressure 121/59, respiratory rate 16, O2 98% on 1 L. Home O2 eval was performed. She did not require any oxygen during the day. She will continue on her 2 L of oxygen at night. General: She is in no acute distress. Heart: Irregularly irregular with murmur. Lungs: Sounds were clear to auscultation bilaterally without crackles or wheezes. Abdomen: Nondistended, nontender. Extremities: Warm and dry. No edema. Mental Status: She is alert and orientated x3 otherwise. DISCHARGE PLANS AND INSTRUCTIONS: She is going over to [facility]. Will be on oral Lasix now 40 twice daily. 2 L of oxygen at night. She was initiated on BuSpar 5 mg 3 times a day for anxiety. She had also received some Reglan during her stay, but this was discontinued on discharge. She will have an INR and BMP on Monday. She did not receive any or need any further potassium replacement. Potassium was 4.5 on discharge. INR was 1.5, and she did receive Lovenox today and yesterday. She did miss a dose of Coumadin on Monday. This is likely why she is subtherapeutic. I will follow up with her on half-way rounds. She is a code level 1. Greater than 30 minutes spent on this discharge process. MKA: 11/30/2017 08:45:35 MODL: 12/01/2017 01:49:43 /[id number] MALLORY
== END 2017-11-30 09:45 | DRG 292 ==
LOC: VM.ED 16:57 → VM.MS 18:33
PROVIDERS: ADMIT Internal Medicine; ATTEND Internal Medicine
DX: I11.0 Hypertensive heart disease with heart failure (principal); I50.9 Heart failure, unspecified; I48.92 Unspecified atrial flutter; H46.9 Unspecified optic neuritis; I50.33 Acute on chronic diastolic (congestive) heart failure; M19.90 Unspecified osteoarthritis, unspecified site; I16.0 Hypertensive urgency; E87.6 Hypokalemia; E83.42 Hypomagnesemia; I27.20 Pulmonary hypertension, unspecified; R10.84 Generalized abdominal pain; I25.2 Old myocardial infarction; Z85.828 Personal history of other malignant neoplasm of skin; F32.9 Major depressive disorder, single episode, unspecified; Z79.01 Long term (current) use of anticoagulants; F34.1 Dysthymic disorder; R00.1 Bradycardia, unspecified; H40.9 Unspecified glaucoma; I25.10 Atherosclerotic heart disease of native coronary artery without angina pectoris; I35.0 Nonrheumatic aortic (valve) stenosis; R79.1 Abnormal coagulation profile; I48.2 Chronic atrial fibrillation; J44.9 Chronic obstructive pulmonary disease, unspecified; K21.9 Gastro-esophageal reflux disease without esophagitis; R32 Unspecified urinary incontinence; G30.9 Alzheimer's disease, unspecified; F02.80 Dementia in other diseases classified elsewhere, unspecified severity, without behavioral disturbance, psychotic disturbance, mood disturbance, and anxiety; F41.9 Anxiety disorder, unspecified; Z99.81 Dependence on supplemental oxygen; Z79.899 Other long term (current) drug therapy; Z87.440 Personal history of urinary (tract) infections; I73.9 Peripheral vascular disease, unspecified; I70.1 Atherosclerosis of renal artery; Z88.0 Allergy status to penicillin; Z91.040 Latex allergy status; Z91.14 Patient's other noncompliance with medication regimen
CPT/HCPCS: 36415; 71046; 74019; 80053; 81001; 83880; 84484; 85025; 93005; 96374; 99285; J1940; J7050; 80048; 80069; 83735; 85610; 94640; 94760; 97161-GP; 97165-GO; A9270-GY; J1650; J7613-GY

== ENCOUNTER 2018-04-25 15:09 | Observation (INO) | payer MEDICAID, MEDICARE, OTHER ==
[2018-04-25] MEDS ORDERED: Sodium Chloride 0.9% 10 ML Syringe FLUSH PRN (15:21)
[2018-04-25] MEDS ORDERED: Sodium Chloride 0.9% 1,000 ML IV SCH (15:30)
[2018-04-25 16:00] LABS: ANION GAP 15.5 mmol/L (10-20)
--- NOTE | 2018-04-25 16:13 | CT ---
[id number] CT/CT Head WO IV EXAM: CT Head WO IV CLINICAL DATA: NEUROLOGIC DEFICIT COMPARISON: CORRELATION IS MADE WITH THE EXAM OF JANUARY 10, 2017. 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 There is no mass or mass effect. There is no hemorrhage or hydrocephalus. There are no extra-axial fluid collections. There are no other sites of abnormal attenuation. Surgical changes of the right orbit are seen. IMPRESSION: NO PLAIN CT EVIDENCE OF ACUTE INTRACRANIAL PROCESS. Barrington Cheung MD 04/25/18 [id number] Thank you for allowing us to participate in the care of your patient.
--- NOTE | 2018-04-25 16:14 | CR ---
[id number] RAD/RAD Chest PA or AP 1V EXAM: SINGLE VIEW CHEST. INDICATION: ATRIAL FLUTTER. CHANGE IN MENTAL STATUS COMPARISON: CORRELATION IS MADE WITH THE EXAM OF FEBRUARY 12, 2018. FINDINGS: The lungs are clear. The cardiomediastinal contour is stable. IMPRESSION: NO PNEUMONIA OR EDEMA. Barrington Cheung MD 04/25/18 [id number] Thank you for allowing us to participate in the care of your patient.
--- NOTE | 2018-04-25 16:25 | EDM.PDOC ---
ED HPI GENERAL MEDICAL PROBLEM - General Chief Complaint: Syncope Stated Complaint: CODE BLUE Time Seen by Provider: 04/25/18 15:20 Source of Information: Reports: Patient, RN History Limitations: Reports: No Limitations - History of Present Illness INITIAL COMMENTS - FREE TEXT/NARRATIVE: PLEASE USE ER H & P FOR ADMISSION HISTORY AND PHYSICAL Patient brought to the ER with complaints of nonresponsiveness. When I arrived in the room patient was blue and was in a wheelchair. She was initially unresponsive. We did transfer her to the trauma room and in the process she became responsive her color did improve from a bluish pallor to a normal pink color once we transferred her to the stretcher in the room she became even more responsive, started answering questions, was alert and oriented. We did continue with a full workup including a head CT, chest x-ray, 2 IV access points , as well as other labs. She states she doesn't remember anything after being at the doctor's office. She does state she heard a loud CODE BLUE going overhead. Significant cardiac history including CHF with multiple exacerbations. She'll rhythm on the EKG did show atrial flutter, rate in the 90s. Currently she denies chest pain, shortness of breath, headache, abdominal pain, nausea vomiting, blood in her urine or stool. Onset: Today, Sudden Associated Symptoms: Reports: No Other Symptoms Lower Back Pain Score (Numeric/FACES): 5 - Related Data Allergies Allergy/AdvReac Type Severity Reaction Status Date / Time adhesive Allergy Cannot Verified 04/25/18 15:40 Remember benazepril HCl [From Lotrel] Allergy Cannot Verified 04/25/18 15:40 Remember Cephalosporins Allergy Rash Verified 04/25/18 15:40 latex Allergy Hives Verified 04/25/18 15:40 Penicillins Allergy Hives Verified 04/25/18 15:40 rofecoxib [From Vioxx] Allergy Cannot Verified 04/25/18 15:40 Remember sertraline HCl [From Zoloft] AdvReac Diarrhea Verified 04/25/18 15:40 Home Meds: Home Meds Diclofenac Sodium [Voltaren 1% Gel] 2 gm TOP QID PRN 03/08/13 [History] Gabapentin [Neurontin] 300 mg PO DAILY 03/08/13 [History] Nitroglycerin [Nitrostat] 0.4 mg SL ASDIRECTED PRN 03/08/13 [History] Albuterol Sulfate [Albuterol Sulfate HFA] 2 puff INH Q4HR PRN 12/23/13 [History] Brimonidine/Timolol [Combigan 0.2%/0.5% Ophth Soln] 1 drop EYEBOTH Q12H [History] Vit C/Vit E Ac/Lut/Mineral 1 [Prosight with Lutein] 1 cap PO DAILY 01/05/15 [ History] Acetaminophen [Tylenol] 325 - 650 mg PO Q4HR PRN 01/08/15 [History] Vitamin B Complex [Balanced B-50] 1 each PO DAILY tab.er 04/03/16 [Rx] Bimatoprost [LUMIGAN 0.01% Ophth Soln] 1 drop EYELF BEDTIME 01/21/17 [History] Fluticasone/Salmeterol [Advair 250-50 Diskus] 1 puff IH BID 01/21/17 [History] Folic Acid 1 mg PO DAILY 01/21/17 [History] Gabapentin [Neurontin] 600 mg PO BEDTIME 01/21/17 [History] Umeclidinium [place] [Incruse Ellipta*] 1 puff IH DAILY 01/21/17 [History] Hydrocortisone [Hydrocortisone 2.5% Crm] 1 gm TOP TID 05/30/17 [History] Magnesium Oxide [Magnesium] 400 mg PO DAILY 11/25/17 [History] Carboxymethylcellulose Sodium [Refresh Tears] 1 drop EYEBOTH TID PRN 11/28/17 [ History] Carvedilol 6.25 mg PO BIDMEALS 11/28/17 [History] Isosorbide Mononitrate [Imdur] 120 mg PO DAILY 11/28/17 [History] Albuterol [Proventil Neb Soln] 2.5 mg NEB Q4HRRT PRN #30 neb 11/30/17 [Rx] Furosemide [Lasix] 40 mg PO BID #180 tablet 11/30/17 [Rx] Lisinopril [Prinivil] 30 mg PO BID #60 tablet 11/30/17 [Rx] ALPRAZolam [Xanax] 0.25 mg PO QID PRN 02/12/18 [History] Mirtazapine [Remeron] 30 mg PO BEDTIME 02/12/18 [History] busPIRone [Buspar] 10 mg PO TID 02/12/18 [History] prednisoLONE acetate [Pred Forte 1% Ophth Susp] 1 drop EYERT DAILY 02/12/18 [ History] Past Medical History - Past Health History Medical/Surgical History: Denies Medical/Surgical History HEENT History: Reports: Cataract, Glaucoma Other HEENT History: wears glasses Cardiovascular History: Reports: Hypertension, [place] Respiratory History: Reports: COPD Gastrointestinal History: Reports: GERD Genitourinary History: Reports: Urinary Incontinence Musculoskeletal History: Reports: Arthritis Neurological History: Reports: Alzheimers Disease, Other (See Below) Psychiatric History: Reports: Alzheimers Disease, Anxiety, Depression Oncologic (Cancer) History: Reports: Squamous Cell Carcinoma Other Oncologic History: skin cancer by eye Other 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 - Past Surgical History HEENT Surgical History: Reports: Cataract Surgery GI Surgical History: Reports: Appendectomy, Cholecystectomy Social & Family History - Family History Family Medical History: Noncontributory - Tobacco Use Smoking Status *Q: Never Smoker - Caffeine Use Caffeine Use: Reports: None, Coffee - Recreational Drug Use Recreational Drug Use: No - Living Situation & Occupation Living situation: Reports: Single Occupation: Retired (lives at [facility], daughter and son-inlaw check on her ; daughter has MS) ED ROS GENERAL - Review of Systems Review Of Systems: See Below Constitutional: Reports: No Symptoms HEENT: Reports: No Symptoms Respiratory: Reports: No Symptoms Cardiovascular: Reports: No Symptoms Endocrine: Reports: No Symptoms GI/Abdominal: Reports: No Symptoms : Reports: No Symptoms Musculoskeletal: Reports: No Symptoms Skin: Reports: Lesions (was at the clinic for possible shingles) Neurological: Reports: No Symptoms Psychiatric: Reports: No Symptoms Hematologic/Lymphatic: Reports: No Symptoms Immunologic: Reports: No Symptoms ED EXAM, GENERAL - Physical Exam Exam: See Below Exam Limited By: No Limitations General Appearance: Alert, WD/WN, No Apparent Distress Eye Exam: Bilateral Eye: Abnormal Pupil (right 4 mm, left 3mm), EOMI, PERRL Ears: Normal TMs Nose: Normal Inspection, Normal Mucosa, No Blood Throat/Mouth: Normal Inspection, Normal Lips, Normal Teeth, Normal Gums, Normal Oropharynx, Normal Voice, No Airway Compromise Head: Atraumatic, Normocephalic Neck: Normal Inspection, Supple, Non-Tender, Full Range of Motion Respiratory/Chest: No Respiratory Distress, Lungs Clear, Normal Breath Sounds, No Accessory Muscle Use, Chest Non-Tender Cardiovascular: Normal Peripheral Pulses, Regular Rate, Rhythm, No Edema, No Gallop, No JVD, No Murmur, No Rub Peripheral Pulses: 2+: Posterior Tibial (L), Posterior Tibial (R), Dorsalis Pedis (L), Dorsalis Pedis (R) GI/Abdominal: Normal Bowel Sounds, Soft, Non-Tender, No Organomegaly, No Distention, No Abnormal Bruit, No Mass Back Exam: Normal Inspection, Full Range of Motion, NT Extremities: Normal Inspection, Normal Range of Motion, Non-Tender, Normal Capillary Refill, No Pedal Edema Neurological: Alert, Oriented, CN II-XII Intact, Normal Cognition, Normal Gait, Normal Reflexes, No Motor/Sensory Deficits Psychiatric: Normal Affect, Normal Mood Skin Exam: Zoster-Like Rash (left anterior epigastric region) Course - Vital Signs Last Recorded V/S: Last Vital Signs Temp 35.9 C 04/25/18 15:10 Pulse 86 04/25/18 16:07 Resp 14 04/25/18 16:07 BP 98/55 L 04/25/18 16:07 Pulse Ox 99 04/25/18 16:07 - Orders/Labs/Meds Orders: Active Orders 24 hr Category Date Time Status Sodium Chloride 0.9% [Normal Saline] 1,000 ml Med 04/25/18 15:30 Active IV ASDIRECTED Sodium Chloride 0.9% [Saline Flush] Med 04/25/18 15:21 Active 10 ml FLUSH ASDIRECTED PRN Saline Lock Insert [OM.PC] Routine Oth 04/25/18 15:21 Ordered Medication Orders Hydrocodone Bitart/Acetaminophen ([place] 325-5 Mg) 1 tab PO Q4H PRN PRN Reason: Pain (moderate 4-6) Sodium Chloride (Normal Saline) 1,000 mls @ 125 mls/hr IV ASDIRECTED MADDIE Last Admin: 04/25/18 15:16 Dose: 125 mls/hr Ondansetron HCl (Zofran Odt) 4 mg PO Q4H PRN PRN Reason: nausea, able to take PO Sodium Chloride (Saline Flush) 10 ml FLUSH ASDIRECTED PRN PRN Reason: Keep Vein Open Labs: Laboratory Tests 04/25/18 04/25/18 04/25/18 Range/Units 15:20 15:20 15:29 WBC 5.9 (4.0-10.0) x10^3/uL RBC 4.49 (4.00-5.50) x10^6/uL Hgb 13.6 D (12.0-16.0) g/dL Hct 43.0 (33.0-47.0) % MCV 95.8 H D (78.0-93.0) fL MCH 30.3 (26.0-32.0) pg MCHC 31.6 L (32.0-36.0) g/dL RDW Coeff of Neha 15.4 H (10.0-15.0) % Plt Count 216 (130-400) x10^3/uL Neut % (Auto) 72.9 (50.0-80.0) % Lymph % (Auto) 10.4 L (25.0-50.0) % Davis % (Auto) 15.0 H (2.0-11.0) % Eos % (Auto) 1.5 (0.0-4.0) % Baso % (Auto) 0.2 (0.2-1.2) % Sodium 141 (136-145) mmol/L Potassium 4.5 (3.5-5.1) mmol/L Chloride 103 (98-107) mmol/L Carbon Dioxide 27 (21-32) mmol/L Anion Gap 15.5 (10-20) mmol/L BUN 40 H (7-18) mg/dL Creatinine 1.9 H (0.55-1.02) mg/dL Est Cr Clr Drug Dosing 15.88 mL/min Estimated GFR (MDRD) 25 Glucose 145 H (74-106) mg/dL Calcium 9.4 (8.5-10.1) mg/dL Corrected Calcium 9.96 (8.5-10.1) mg/dL Magnesium 2.2 (1.8-2.4) mg/dL Total Bilirubin 1.1 H (0.2-1.0) mg/dL AST 30 (15-37) U/L ALT 26 (14-59) U/L Alkaline Phosphatase 117 H (46-116) U/L Creatine Kinase 31 (26-192) U/L POC Troponin I 0.01 (0.00-0.08) ng/mL NT-Pro-B Natriuret Pep 6690 H (<=450) pg/mL Total Protein 7.7 (6.4-8.2) g/dL Albumin 3.3 L (3.4-5.0) g/dL Globulin 4.4 Albumin/Globulin Ratio 0.75 TSH, Ultra Sensitive 2.687 (0.358-3.74) uIU/mL Meds: Medications Generic Name Dose Route Start Last Admin Trade Name Freq PRN Reason Stop Dose Admin Hydrocodone Bitart/Acetaminophen 1 tab 04/25/18 17:25 [place] 325-5 Mg PO Q4H PRN Pain (moderate 4-6) Sodium Chloride 1,000 mls @ 125 mls/hr 04/25/18 15:30 04/25/18 15:16 Normal Saline IV 125 mls/hr ASDIRECTED MADDIE Administration Ondansetron HCl 4 mg 04/25/18 17:25 Zofran Odt PO Q4H PRN nausea, able to take PO Sodium Chloride 10 ml 04/25/18 15:21 Saline Flush FLUSH ASDIRECTED PRN Keep Vein Open Departure - Departure Time of Disposition: 17:10 Disposition: Refer to Observation Condition: Good Clinical Impression: Syncope and collapse Shingles rash Qualifiers: Herpes zoster complications: without complications Qualified Code(s): B02.9 - Zoster without complications - Discharge Information *PRESCRIPTION DRUG MONITORING PROGRAM REVIEWED*: Not Applicable *COPY OF PRESCRIPTION DRUG MONITORING REPORT IN PATIENT LETI: Not Applicable - Problem List & Annotations (1) Shingles rash SNOMED Code(s): 5089099 Code(s): B02.9 - ZOSTER WITHOUT COMPLICATIONS Status: Acute Current Visit : Yes Qualifiers: Herpes zoster complications: without complications Qualified Code(s): B02.9 - Zoster without complications (2) Syncope and collapse SNOMED Code(s): 420662634 Code(s): R55 - SYNCOPE AND COLLAPSE Status: Acute Priority: Medium Current Visit: Yes - Problem List Review Problem List Initiated/Reviewed/Updated: Yes - My Orders Last 24 Hours: My Active Orders 04/25/18 15:21 Sodium Chloride 0.9% [Saline Flush] 10 ml FLUSH ASDIRECTED PRN Saline Lock Insert [OM.PC] Routine 04/25/18 15:30 Sodium Chloride 0.9% [Normal Saline] 1,000 ml IV ASDIRECTED - Assessment/Plan Last 24 Hours: My Active Orders 04/25/18 15:21 Sodium Chloride 0.9% [Saline Flush] 10 ml FLUSH ASDIRECTED PRN Saline Lock Insert [OM.PC] Routine 04/25/18 15:30 Sodium Chloride 0.9% [Normal Saline] 1,000 ml IV ASDIRECTED Assessment:: Syncope with collapse Herpes Zoster rash Plan: Plan 1. Syncope and collapse - initiate fluids, gentle hydration with CHF history, telemetry, repeat troponin 2. Zoster rash - contact precautions, initiate acyclovir
[2018-04-25] MEDS ORDERED: Ondansetron 4 MG Tab.DIS PO PRN (17:25)
[2018-04-25] MEDS ORDERED: Acetaminophen/HYDROcodone 325-5 MG Tab PO PRN (17:25)
[2018-04-25] MEDS ORDERED: Nitroglycerin 0.4 MG Tab.SL SL PRN (23:14)
[2018-04-25] MEDS ORDERED: Dextran 70/Hypromellose/PF Ophth Soln 0.9 ML UD EYEBOTH PRN (23:14)
[2018-04-25] MEDS ORDERED: Diclofenac Sodium 1% Gel 100 GM Tube TOP PRN (23:14)
[2018-04-25] MEDS ORDERED: Loperamide 2 MG Cap PO PRN (23:14)
[2018-04-25] MEDS ORDERED: Albuterol 0.083% 2.5 MG/3 ML Neb Soln NEB PRN (23:14)
[2018-04-25] MEDS ORDERED: Acetaminophen 325 MG Tab PO PRN (23:14)
[2018-04-26] MEDS ORDERED: Albuterol 0.083% 2.5 MG/3 ML Neb Soln INH PRN
[2018-04-26] MEDS ORDERED: Brimonidine 0.2% Ophth Soln 5 ML Bottle EYELF SCH (00:30)
[2018-04-26] MEDS ORDERED: Timolol Maleate 0.5% Ophth Soln 5 ML Bottle EYELF SCH (00:30)
[2018-04-26] MEDS: Fluticasone-Salmeterol 113-14 MCG Powder Inhalant INH SCH ×2 (00:54→07:53)
[2018-04-26] MEDS ORDERED: Ipratropium 0.02% 0.5 MG/2.5 ML Neb Soln INH SCH (06:00)
[2018-04-26] MEDS: Lisinopril 10 MG Tab PO SCH ×2 (06:00→07:54)
[2018-04-26 07:25] LABS: ANION GAP 15.2 mmol/L (10-20)
[2018-04-26] MEDS ORDERED: Furosemide 20 MG Tab PO SCH (08:00)
[2018-04-26] MEDS ORDERED: Folic Acid 1 MG Tab PO SCH (08:00)
[2018-04-26] MEDS ORDERED: Vitamin B Complex Tab.ER PO SCH (08:00)
[2018-04-26] MEDS ORDERED: prednisoLONE Acetate 1% Ophth Susp 5 ML Bottle EYERT SCH (08:00)
[2018-04-26] MEDS ORDERED: Beta-Carotene (Vitamin A) w/Vitamin C & E plus Minerals Tab PO SCH (08:00)
[2018-04-26] MEDS ORDERED: Carvedilol 3.125 MG Tab PO SCH (08:00)
[2018-04-26] MEDS ORDERED: Non-Formulary Medication 1 Each PO SCH (08:00)
[2018-04-26] MEDS ORDERED: Isosorbide Mononitrate 60 MG Tab.ER PO SCH (08:00)
[2018-04-26] MEDS ORDERED: Magnesium Oxide 400 MG Tab PO SCH (08:00)
[2018-04-26] MEDS ORDERED: busPIRone 5 MG Tab PO SCH (08:00)
[2018-04-26] MEDS ORDERED: valACYclovir 1,000 MG Tab PO SCH (08:00)
[2018-04-26] MEDS ORDERED: Gabapentin 300 MG Cap PO SCH ×2 (08:00→20:00)
[2018-04-26 10:17] VITALS: BP 149/81
[2018-04-26] MEDS ORDERED: BIMATOPROST 0.03% EYELF SCH (20:00)
[2018-04-26] MEDS ORDERED: Warfarin 2.5 MG Tab PO SCH (20:00)
[2018-04-26] MEDS ORDERED: Mirtazapine 15 MG Tab PO SCH (20:00)
--- NOTE | 2018-04-27 03:42 | DISCH ---
PRIMARY DISCHARGE DIAGNOSES: 1. A syncopal episode, likely due to volume depletion and hypotension. 2. Herpes zoster, thoracic dermatomes, with postherpetic neuralgia. 3. Chronic diastolic heart failure, stable, without exacerbation. 4. Coronary artery disease without evidence of coronary ischemia. 5. Chronic atrial fibrillation, on Coumadin. 6. History of dementia, but last mental was in 2017. 7. History of strokes. 8. Depression, longstanding, with increased family stressors. 9. Anxiety. 10.Pulmonary hypertension. 11.Essential hypertension. 12.Peripheral neuropathy, on Neurontin. 13.Moderate mitral regurgitation. 14.Osteoarthritis. 15.Oxygen at night, use 2 L. 16.Reactive airway disease that is not asthma. 17.Renal artery stenosis. 18.Splenic artery aneurysm. 19.Previous small bowel obstruction. REASON FOR ADMISSION: On the date of admission, this 87-year-old female who had some pain in the abdominal area starting back on 04/17/2018 had some increasing family stressors. Then, yesterday, they noticed a rash during her bath. HOSPITAL COURSE: She was brought over to the clinic. She was diagnosed with shingles, but then unfortunately while she was in the clinic she literally turned blue. She was taken over to [facility] emergently by the wheelchair. When she got over there, she was "purple" per nursing. When they got her on the bed and sternal rubbed her, she actually did wake up. She is normally having very resistant hypertension and her blood pressures were only 98/55. She received some fluid. She does have a history of a previous bradycardic arrest, but that was when she was on increasing doses of beta-blockers. Her pulse oximetry was 100% on 15 L. She was not on oxygen in the clinic when this event occurred. Her heart was irregular. There was no evidence of an TN on her EKG. She is already on Coumadin. Her INR was therapeutic, so it was unlikely that she would have a pulmonary embolism. Her creatinine was elevated up to 1.9, which presumably could have been to her poor oral intake from feeling so poorly due to the shingles. Her baseline creatinine is about 1.4, better. On discharge today, she is doing very well. She does state she is in a lot of pain. She actually did not take any pain pills while she was here because they were just p.r.n. and she is already on Neurontin prior to this. She was given some Valtrex while she was here. She was conversing appropriately, seemed to be completely back to normal. She did have some higher blood pressure readings this morning 196/78, but again was reporting like 10/10 pain, and just prior to discharge her blood pressure did go down to 149/81. She stayed on the same medications for blood pressure. She tolerated her pills. OBJECTIVE: Vital Signs: On discharge, her temperature 98.3, pulse 83 and regular, respiratory rate 16, O2 of 99% on 2 L, blood pressure 149/81. General: She is in no acute distress. Heart: Irregularly irregular with murmur. Lungs: Lung sounds are clear to auscultation bilaterally without crackles or wheezes. Abdomen: Has positive bowel sounds. Soft, nontender. Extremities: Warm and dry. No edema. Mental Status: Alert and orientated x3. Skin: She has a very large red rash with still some small vesicle lesions noted. She does have some scabbing. There is no warmth or drainage to suggest a secondary bacterial infection. DISCHARGE PLANS AND INSTRUCTIONS: She is going back up to [facility]. I will put her on 5 mg 3 times a day scheduled Claridge for the next 7 days, then p.r.n.; Valtrex 1000 three times a day for 7 days. I will increase her Neurontin slightly to 300, 300, and 600 from 300 and 600 daily. She will get dressing changes daily at the residential. We will also see her for a recheck on residential rounds. We will monitor blood pressures twice a day and notify me if over 200 systolic. Admitted on observation after a code blue alert syncopal episode with etiology felt to be some volume depletion due to feeling poorly from shingles. MKA: 04/26/2018 20:19:00 MODL: 04/27/2018 03:36:00 /[id number]
[2018-04-30] MEDS ORDERED: Warfarin 2.5 MG Tab PO SCH (20:00)
== END 2018-04-26 11:25 ==
LOC: VM.ED 15:09 → VM.MS 16:15
PROVIDERS: ADMIT Nurse Practitioner Family; ATTEND Nurse Practitioner Family
DX: R55 Syncope and collapse (principal); B02.29 Other postherpetic nervous system involvement; I11.0 Hypertensive heart disease with heart failure; I50.32 Chronic diastolic (congestive) heart failure; I25.10 Atherosclerotic heart disease of native coronary artery without angina pectoris; I48.2 Chronic atrial fibrillation; I27.20 Pulmonary hypertension, unspecified; I34.0 Nonrheumatic mitral (valve) insufficiency; I70.1 Atherosclerosis of renal artery; I72.8 Aneurysm of other specified arteries; F03.90 Unspecified dementia, unspecified severity, without behavioral disturbance, psychotic disturbance, mood disturbance, and anxiety; F32.9 Major depressive disorder, single episode, unspecified; F41.9 Anxiety disorder, unspecified; J98.8 Other specified respiratory disorders; G62.9 Polyneuropathy, unspecified; M19.90 Unspecified osteoarthritis, unspecified site; Z99.81 Dependence on supplemental oxygen; Z86.73 Personal history of transient ischemic attack (TIA), and cerebral infarction without residual deficits; Z79.01 Long term (current) use of anticoagulants; Z79.51 Long term (current) use of inhaled steroids; Z79.899 Other long term (current) drug therapy
CPT/HCPCS: 36415; 70450; 71045; 80048; 80053; 82550; 83735; 83880; 84443; 84484; 85025; 85610; 93005; 94640; 96360; 96361; 99285; A9270; G0378; J7030; 99284-GF